=== PATIENT | male | born 1990 | race Two or more races ===

== ENCOUNTER 2021-10-04 05:50 | Emergency (ER) | payer OTHER ==
[2021-10-04 05:56] VITALS: TEMP 98
--- NOTE | 2021-10-04 06:34 | ED ---
General Adult HPI - General Chief complaint: Overdose Stated complaint: Overdose Time Seen by Provider: 10/04/21 06:03 Source: patient, police, EMS, RN notes reviewed Mode of arrival: EMS - History of Present Illness Initial comments: 31-year-old male presents to the emergency room for a chief complaint of overdose. Patient is a poor historian, most history obtained from EMS. Patient presents with EMS and PD. He was dropped off at a local fire station unconscious by his friends. He was given nasal Narcan and be became combative. On arrival he is not following direction or answering questions, having tangential speech and attempting to get out of bed. No history of trauma that they're aware of.Patient has no other complaints at this time including shortness of breath, chest pain, abdominal pain, nausea or vomiting, headache, or visual changes. - Related Data Home Medications Medication Instructions Recorded Confirmed No Known Home Medications 09/23/14 10/04/21 Allergies Allergy/AdvReac Type Severity Reaction Status Date / Time No Known Allergies Allergy Verified 10/04/21 07:16 Review of Systems ROS Statement: Those systems with pertinent positive or pertinent negative responses have been documented in the HPI. ROS Other: All systems not noted in ROS Statement are negative. Past Medical History Past Medical History: No Reported History, Unable to Obtain History of Any Multi-Drug Resistant Organisms: None Reported, Unobtainable Past Surgical History: No Surgical Hx Reported, Unable to Obtain Past Psychological History: No Psychological Hx Reported, Unable to Obtain Smoking Status: Unknown if ever smoked Past Alcohol Use History: Occasional Past Drug Use History: Heroin General Exam General appearance: alert (easily arousable to name but quick to fall back asleep) Head exam: Present: atraumatic Eye exam: Present: normal appearance, PERRL, EOMI. Absent: scleral icterus, conjunctival injection ENT exam: Present: normal exam, mucous membranes moist Neck exam: Present: normal inspection, full ROM. Absent: tenderness, meningismus Respiratory exam: Present: normal lung sounds bilaterally. Absent: respiratory distress, wheezes Cardiovascular Exam: Present: regular rate, normal rhythm, normal heart sounds GI/Abdominal exam: Present: soft, normal bowel sounds. Absent: distended, tenderness Neurological exam: Present: alert (arousable to name, not answering questions.) Course Vital Signs 10/04/21 10/04/21 10/04/21 05:52 06:25 07:49 Temperature 98 F Pulse Rate 106 H 85 91 Respiratory 18 16 14 Rate Blood Pressure 128/80 122/63 99/72 O2 Sat by Pulse 98 98 100 Oximetry 10/04/21 08:34 Temperature Pulse Rate 94 Respiratory 16 Rate Blood Pressure 141/77 O2 Sat by Pulse 100 Oximetry Procedures - Restraint - Face to Face Restraint Occurrence 1 Patient's Immediate Situation: Endangers self safety, Endangers staff safety Patient's Reaction to the Intervention: Uncooperative, Angry, Aggressive, Combative Patient's Medical & Behavioral Condition: Drowsy Need to Continue or Terminate Restraint or Seclusion: Continue Face to Face Eval of Restraint Date: 10/04/21 Face to Face Eval of Restraint Time: 06:03 Medical Decision Making - Medical Decision Making Patient presents with PD and EMS after becoming combative with Narcan. He was initially restrained. He became sleepy and was easily arousable to his name th roughout his stay. Restraints are removed. Laboratory evaluation was obtained which was negative. CT brain pending however patient is leaving AGAINST MEDICAL ADVICE. He is alert and oriented, capable of making medical decisions. He is ambulatory. - Lab Data Result diagrams: 10/04/21 06:12 10/04/21 06:12 Lab Results 10/04/21 10/04/21 Range/Units 06:12 06:12 WBC 12.0 H (3.8-10.6) k/uL RBC 4.76 (4.30-5.90) m/uL Hgb 14.4 (13.0-17.5) gm/dL Hct 43.5 (39.0-53.0) % MCV 91.4 (80.0-100.0) fL MCH 30.1 (25.0-35.0) pg MCHC 33.0 (31.0-37.0) g/dL RDW 12.0 (11.5-15.5) % Plt Count 281 (150-450) k/uL MPV 8.3 Neutrophils % 77 % Lymphocytes % 13 % Monocytes % 8 % Eosinophils % 1 % Basophils % 0 % Neutrophils # 9.2 H (1.3-7.7) k/uL Lymphocytes # 1.5 (1.0-4.8) k/uL Monocytes # 0.9 (0-1.0) k/uL Eosinophils # 0.2 (0-0.7) k/uL Basophils # 0.0 (0-0.2) k/uL Sodium 138 (137-145) mmol/L Potassium 3.5 (3.5-5.1) mmol/L Chloride 103 (98-107) mmol/L Carbon Dioxide 27 (22-30) mmol/L Anion Gap 8 mmol/L BUN 21 H (9-20) mg/dL Creatinine 1.24 (0.66-1.25) mg/dL Est GFR (CKD-EPI)AfAm 88 (>60 ml/min/1.73 sqM) Est GFR (CKD-EPI)NonAf 76 (>60 ml/min/1.73 sqM) Glucose 135 H (74-99) mg/dL Calcium 8.9 (8.4-10.2) mg/dL Total Bilirubin 0.8 (0.2-1.3) mg/dL AST 45 (17-59) U/L ALT 22 (4-49) U/L Alkaline Phosphatase 61 (38-126) U/L Total Protein 7.5 (6.3-8.2) g/dL Albumin 4.5 (3.5-5.0) g/dL Serum Alcohol <10 mg/dL Disposition Clinical Impression: Opioid overdose Disposition: Left Against Medical Advice Condition: Good Instructions (If sedation given, give patient instructions): Adult Overdose (ED) Additional Instructions: Follow up with primary care. Return to the ER for any worsening symptoms. Is patient prescribed a controlled substance at d/c from ED?: No Referrals: Hazel Wade MD [REFERRING] - 1-2 days Time of Disposition: 08:39
[2021-10-04 07:00] LABS: Basophils % (A) 0 %; Eosinophils # (A) 0.2 k/uL (0-0.7); Eosinophils % (A) 1 %; HCT 43.5 % (39.0-53.0); HGB 14.4 gm/dL (13.0-17.5); Lymphocytes # (A) 1.5 k/uL (1.0-4.8); Lymphocytes % (A) 13 %; MCH 30.1 pg (25.0-35.0); MCV 91.4 fL (80.0-100.0); Mean Platelet Volume 8.3; Monocytes # (A) 0.9 k/uL (0-1.0); Monocytes % (A) 8 %; Neutrophils # (A) 9.2 k/uL (1.3-7.7); Neutrophils % (A) 77 %; Platelet Count 281 k/uL (150-450); RBC 4.76 m/uL (4.30-5.90)
[2021-10-04 07:14] LABS: ALT 22 U/L (4-49); AST 45 U/L (17-59); African American GFR (CKD) 88 (>60 ml/min/1.73 sqM); Albumin 4.5 g/dL (3.5-5.0); Alcohol <10 mg/dL; Alkaline Phosphatase 61 U/L (38-126); Anion Gap 8 mmol/L; Blood Urea Nitrogen 21 mg/dL (9-20); Calcium 8.9 mg/dL (8.4-10.2); Carbon Dioxide 27 mmol/L (22-30); Chloride 103 mmol/L (98-107); Glucose 135 mg/dL (74-99); Non-African American GFR(CKD) 76 (>60 ml/min/1.73 sqM); Potassium 3.5 mmol/L (3.5-5.1); Sodium 138 mmol/L (137-145); Total Bilirubin 0.8 mg/dL (0.2-1.3); Total Protein 7.5 g/dL (6.3-8.2)
[2021-10-04 08:35] VITALS: BP 141/77; PULSE 94; RESP 16
--- NOTE | 2021-10-04 08:40 | CT ---
EXAMINATION TYPE: CT brain wo con DATE OF EXAM: 10/04/2021 COMPARISON: None available HISTORY: AMS. SCANNED TWICE DUE TO PATIENT MOVEMENT CT DLP: 2202.4 mGycm Automated exposure control for dose reduction was used. TECHNIQUE: CT scan of the brain is performed without IV contrast administration. FINDINGS: Suboptimal CT scan with motion artifacts in spite of repetition. The posterior fossa and the inferior aspects of the temporal bones are obscured by artifacts. No gross acute intracranial hemorrhage. No gross acute cortical infarct. No midline shift, herniation or ventriculomegaly. Unremarkable sella and CP angles. No gross space-occupying lesion, vasogenic edema or mass effect. No gross orbital abnormality. Mucosal thickening of the right maxillary sinus. Clear mastoid air cells. No gross aggressive bone lesion. IMPRESSION: With the limitation of the suboptimal artifactual images, no major acute intracranial bleeding, gross space-occupying lesion or significant mass effect. Subtle abnormality in the posterior fossa or temp oral lobes cannot be excluded by this CT scan.
== END 2021-10-04 08:40 | disposition left against medical advice (07) ==
LOC: EC 05:50
DX: T40.601A Poisoning by unspecified narcotics, accidental (unintentional), initial encounter (principal); Z53.29 Procedure and treatment not carried out because of patient's decision for other reasons
CPT/HCPCS: 36415; 80053; 85025; 70450; 99285; G0480; 80320

== ENCOUNTER 2022-09-12 17:06 | Inpatient (IN) | payer OTHER ==
[2022-09-12] MEDS ORDERED: LORazepam 2 MG/ML INJ IM STA (17:26)
--- NOTE | 2022-09-12 17:29 | ED ---
General Adult HPI - General Chief complaint: Overdose Stated complaint: mental health Time Seen by Provider: 09/12/22 17:07 Source: patient, EMS Mode of arrival: EMS Limitations: no limitations - History of Present Illness Initial comments: Dictation was produced using [employer] dictation software. please excuse any grammatical, word or spelling errors. Chief Complaint: 32-year-old male presents emergency department for psychiatric evaluation History of Present Illness: Patient 32-year-old male he has history of illicit drug abuse. Patient states he snorted a couple lines of methamphetamines on top of smoking WAX and taking suboxone. Patient was brought in by EMS. Apparently bystanders noted the patient was lying on the road. Police was called ultimately led to EMS being called and patient be brought to the ER. Patient byrd s any suicidal or homicidal ideation. Patient allegedly relapsed on use of drugs. The ROS documented in this emergency department record has been reviewed and confirmed by me. Those systems with pertinent positive or negative responses have been documented in the HPI. All other systems are other negative and/or noncontributory. PHYSICAL EXAM: General Impression: Alert and oriented x3, not in acute distress, sympathomimetic toxic HEENT: Normocephalic atraumatic, extra-ocular movements intact, pupils equal and reactive to light bilaterally, mucous membranes moist. Cardiovascular: Tachycardic Chest: Able to complete full sentences, no retractions, no tachypnea Abdomen: abdomen soft, non-tender, non-distended, no organomegaly Musculoskeletal: Pulses present and equal in all extremities, no peripheral edema Motor: no focal deficits noted Neurological: CN II-XII grossly intact, no focal motor or sensory deficits noted Skin: Intact with no visualized rashes Psych: Normal affect and mood ED course: 32-year-old male presents emergency department for significant tobacco medical toxicity. Vital signs upon arrival shows heart rate 122, so vital signs within acceptable limits. Nursing notes and chart review was performed Was pt. sent in by a medical professional or institution ([facility], [facility], urgent care, hospital, or senior living...) When possible be specific @ -No Did you speak to anyone other than the patient for history (EMS, parent, family, police, friend...)? What history was obtained from this source @ -EMS Did you review nursing and triage notes (agree or disagree)? Why? @ -I reviewed and agree with nursing and triage notes Were old charts reviewed (outside hosp., previous admission, EMS record, old EKG, old radiological studies, urgent care reports/EKG's, senior living records)? Report findings @ -No old charts were reviewed Differential Diagnosis (chest pain, altered mental status, abdominal pain women, abdominal pain men, vaginal bleeding, musculoskeletal, weakness, fever, dyspnea, syncope, headache, dizziness, GI bleed, back pain, seizure, CVA, palpatations, mental health)? @ -Differential Altered Mental Status: Hypoglycemia, DKA, hypercapnia, ETOH, overdose, CO poisoning, trauma, myxedema coma, HTN encephalopathy, infection, encephalitis, psychosis, intercranial hemorrhage, hepatic encephalopathy, meningitis, CVA, this is not meant to be an all-inclusive list EKG interpreted by me (3pts min.). @ -None done X-rays interpreted by me (1pt min.). @ -None done CT interpreted by me (1pt min.). @ -None done U/S interpreted by me (1pt. min.). @ -None done What testing was considered but not performed or refused? (CT, X-rays, U/S, labs)? Why? @ -See above What meds were considered but not given or refused? Why? @ -See above Did you discuss the management of the patient with other professionals (professionals i.e. , PA, [facility], lab, RT, psych nurse, social work msw, deputy director, teacher, detention officer, classification case manager)? Give summary @ -Case discussed with Dr. Rosen for admission Was smoking cessation discussed for >3mins.? @ -No Was critical care preformed (if so, how long)? @ -Yes, 33 minutes Were there social determinants of health that impacted care today? How? (Homelessness, low income, unemployed, alcoholism, drug addiction, transportation, low edu. Level, literacy, decrease access to med. care, half-way, rehab)? @ -No Was there de-escalation of care discussed even if they declined (Discuss DNR or withdrawal of care, Hospice)? DNR status @ -No What co-morbidities impacted this encounter? (DM, HTN, Smoking, COPD, CAD, Cancer, CVA, ARF, Chemo, Hep., AIDS, mental health diagnosis, sleep apnea, morbid obesity)? @ -None Was patient admitted / discharged? Hospital course, mention meds given and route, prescriptions, significant lab abnormalities, going to OR and other pertinent info. @ -32-year-old male presents emergency department for mental health evaluation. Patient showing signs of sympathomimetic toxicity. Patient admits to using methamphetamines today. Patient agitated. He is given Ativan with sedation. Laboratory evaluation obtained. Stress leukocytosis 21.2. Metabolic panel shows acidosis and hypoglycemia. Elevated renal markers. CK of 43,000 suggesting rhabdomyolysis. Jaimes catheter was placed for accurate I&O monitoring. Patient will be admitted for further care. Case discussed with Dr. Rosen who is willing to accept patients care. Patient given dextrose. Glucose levels will be monitored. Undiagnosed new problem with uncertain prognosis? @ -No Drug Therapy requiring intensive monitoring for toxicity (Heparin, Nitro, Insulin, Cardizem)? @ -Yes Were any procedures done? @ -No Diagnosis/symptom? Acute, or Chronic, or Acute on Chronic? Uncomplicated (without systemic symptoms) or Complicated (systemic symptoms)? @ -1. Acute sympathomimetic toxicity,, located, 2. Rhabdomyolysis, 3. Hypoglycemia Side effects of treatment? @ -No Exacerbation, Progression, or Severe Exacerbation? @ -No Poses a threat to life or bodily function? How? (Chest pain, [place], [place], pneumonia, PE, COPD, DKA, ARF, appy, cholecystitis, CVA, Diverticulitis, Homicidal, Suicidal, threat to staff... and all critical care pts) @ -Yes - Related Data Home Medications Medication Instructions Recorded Confirmed No Known Home Medications 09/23/14 09/12/22 Allergies Allergy/AdvReac Type Severity Reaction Status Date / Time No Known Allergies Allergy Verified 09/12/22 17:43 Review of Systems ROS Statement: Those systems with pertinent positive or pertinent negative responses have been documented in the HPI. ROS Other: All systems not noted in ROS Statement are negative. Past Medical History Past Medical History: No Reported History, Unable to Obtain History of Any Multi-Drug Resistant Organisms: None Reported, Unobtainable Past Surgical History: No Surgical Hx Reported, Unable to Obtain Past Psychological History: No Psychological Hx Reported, Unable to Obtain Smoking Status: Unknown if ever smoked Past Alcohol Use History: Occasional Past Drug Use History: Heroin General Exam Limitations: no limitations Course Vital Signs 09/12/22 09/12/22 09/12/22 17:12 20:00 20:23 Temperature 98.1 F Pulse Rate 122 H 108 H Respiratory 18 16 Rate Blood Pressure 140/93 126/63 O2 Sat by Pulse 97 84 L 93 L Oximetry 09/12/22 09/12/22 20:26 20:36 Temperature Pulse Rate Respiratory Rate Blood Pressure O2 Sat by Pulse 74 L 96 Oximetry Medical Decision Making - Lab Data Result diagrams: 09/12/22 18:54 09/12/22 18:54 Lab Results 09/12/22 09/12/22 09/12/22 Range/Units 18:54 18:54 20:07 WBC 21.2 H (3.8-10.6) k/uL RBC 4.54 (4.30-5.90) m/uL Hgb 13.8 (13.0-17.5) gm/dL Hct 40.7 (39.0-53.0) % MCV 89.6 (80.0-100.0) fL MCH 30.5 (25.0-35.0) pg MCHC 34.0 (31.0-37.0) g/dL RDW 12.2 (11.5-15.5) % Plt Count 232 (150-450) k/uL MPV 9.4 Neutrophils % 89 % Lymphocytes % 4 % Monocytes % 5 % Eosinophils % 1 % Basophils % 0 % Neutrophils # 18.9 H (1.3-7.7) k/uL Lymphocytes # 0.8 L (1.0-4.8) k/uL Monocytes # 1.1 H (0-1.0) k/uL Eosinophils # 0.1 (0-0.7) k/uL Basophils # 0.0 (0-0.2) k/uL Sodium 137 (137-145) mmol/L Potassium 4.3 (3.5-5.1) mmol/L Chloride 94 L (98-107) mmol/L Carbon Dioxide 21 L (22-30) mmol/L Anion Gap 22 mmol/L BUN 38 H (9-20) mg/dL Creatinine 1.47 H (0.66-1.25) mg/dL Est GFR (CKD-EPI)AfAm 71 (>60 ml/min/1.73 sqM) Est GFR (CKD-EPI)NonAf 62 (>60 ml/min/1.73 sqM) Glucose 53 L (74-99) mg/dL Calcium 8.9 (8.4-10.2) mg/dL Creatine Kinase 26905 H* (55-170) U/L Urine Opiates Screen Not Detected (NotDetected) Ur Oxycodone Screen Not Detected (NotDetected) Urine Methadone Screen Not Detected (NotDetected) Ur Propoxyphene Screen Not Detected (NotDetected) Ur Barbiturates Screen Not Detected (NotDetected) U Tricyclic Antidepress Not Detected (NotDetected) Ur Phencyclidine Scrn Not Detected (NotDetected) Ur Amphetamines Screen Detected H (NotDetected) U Methamphetamines Scrn Detected H (NotDetected) U Benzodiazepines Scrn Not Detected (NotDetected) Urine Cocaine Screen Not Detected (NotDetected) U Marijuana (THC) Screen Detected H (NotDetected) Disposition Clinical Impression: Adverse effect of sympathomimetics, Rhabdomyolysis Disposition: ADMITTED IP TO THIS [facility] Condition: Serious Referrals: None,Stated [Primary Care Provider] - 1-2 days Decision Time: 21:10
[2022-09-12] MEDS ORDERED: DIPH,PERTUS(ACELL)TETVAC-LF 0.5 ML VIAL IM ONE (18:58)
[2022-09-12 19:03] LABS: Basophils % (A) 0 %; Eosinophils # (A) 0.1 k/uL (0-0.7); Eosinophils % (A) 1 %; HCT 40.7 % (39.0-53.0); HGB 13.8 gm/dL (13.0-17.5); Lymphocytes # (A) 0.8 k/uL (1.0-4.8); Lymphocytes % (A) 4 %; MCH 30.5 pg (25.0-35.0); MCV 89.6 fL (80.0-100.0); Mean Platelet Volume 9.4; Monocytes # (A) 1.1 k/uL (0-1.0); Monocytes % (A) 5 %; Neutrophils # (A) 18.9 k/uL (1.3-7.7); Neutrophils % (A) 89 %; Platelet Count 232 k/uL (150-450); RBC 4.54 m/uL (4.30-5.90); RDW 12.2 % (11.5-15.5); WBC 21.2 k/uL (3.8-10.6)
[2022-09-12 19:11] LABS: Calcium 8.9 mg/dL (8.4-10.2); Potassium 4.3 mmol/L (3.5-5.1)
[2022-09-12] MEDS ORDERED: DEXTROSE 50% SYRINGE 50 ML IVP STA (19:55)
[2022-09-12] MEDS ORDERED: LORazepam 2 MG/ML INJ IV STA ×2 (20:21→22:31)
[2022-09-12 20:34] LABS: Amphetamine Screen,Urine Detected (NotDetected); Barbiturate Screen,Urine Not Detected (NotDetected); Benzodiazepines Screen,Urine Not Detected (NotDetected); Cocaine Screen,Urine Not Detected (NotDetected); Methadone Screen, Urine Not Detected (NotDetected); Opiate Screen,Urine Not Detected (NotDetected); Oxycodone Screen, Urine Not Detected (NotDetected); Phencyclidine Screen,Urine Not Detected (NotDetected); Tricyclic Antidepressant,Urine Not Detected (NotDetected); Urn Cannabinoid Scrn Detected (NotDetected)
[2022-09-12] MEDS ORDERED: NALOXONE 0.4 MG/ML 1 ML VIAL IV PRN ×2 (21:05→23:35)
[2022-09-12] MEDS: SODIUM CHLORIDE 0.9% 1,000 ML IV SCH (21:12)
[2022-09-12] MEDS ORDERED: SODIUM CHLORIDE 0.9% 2,000 ML IV STA (21:13)
--- NOTE | 2022-09-12 21:25 | XR ---
EXAMINATION TYPE: XR chest 1V portable DATE OF EXAM: 09/12/2022 COMPARISON: NONE HISTORY: Hypoxemia TECHNIQUE: Single view FINDINGS: Heart is normal. Lungs are clear of infiltrate. No heart failure. There are no hilar masses . There are chest leads. Bony thorax is intact IMPRESSION: No active cardiopulmonary disease. Normal heart
[2022-09-12 21:48] LABS: Glucose,Whole Blood 73 mg/dL (70-110)
[2022-09-12] MEDS ORDERED: DEXTROSE 10% IN WATER 1,000 ML with SODIUM CHLORIDE 2.5MEQ/ML VIAL 153.8 MEQ IV SCH (22:00)
[2022-09-12] MEDS ORDERED: diphenhydrAMINE 50 MG/ML 1 ML VIAL IVP STA (22:32)
[2022-09-12 22:45] LABS: Glucose,Whole Blood 72 mg/dL (70-110)
[2022-09-12 23:06] LABS: Glucose,Whole Blood 87 mg/dL (70-110)
[2022-09-12] MEDS: DEXMEDETOMIDINE/0.9% NACL(PMX) 400 MCG in EMPTY BAG 1 BAG IV SCH (23:08)
[2022-09-12 23:18] LABS: ABG Base Excess -7.2 mmol/L; ABG HCO3 20 mmol/L (21-25); ABG Oxygen Saturation 99.7 % (94-97); ABG PCO2 47 mmHg (35-45); ABG PH 7.24 (7.35-7.45); ABG PO2 246 mmHg (83-108); ABG TCO2 22 mmol/L (19-24); Allen Test Performed? Yes
--- NOTE | 2022-09-12 23:44 | P.HPIM ---
History of Present Illness H&P Date: 09/12/22 The patient is a 32-year-old male with a PMH of polysubstance abuse was brought to the emergency room after he was found laying down by the road. The patient was very agitated and combative at the time of interview, thereby no meaningful history could be obtained. The patient had reportedly admitted to using multiple substances throughout the day today including Suboxone. Urine toxicology was positive for methamphetamines, amphetamines, and marijuana. Laboratory evaluation was also remarkable for creatine kinase of 43,040. Patient received Ativan IV push 2 mg 2 in the emergency room. Review of systems: Unable to obtain due to mental status Physical examination: Vital signs reviewed General: Disheveled, no distress, appears at stated age, overweight Derm: Superficial blisters on feet, warm Head: atraumatic, normocephalic, symmetric Eyes: EOMI, no lid lag, anicteric sclera, pupils equal round reactive to light ENT: Nose and ears atraumatic Neck: No cervical lymphadenopathy, trachea midline, supple Mouth: no lip lesion, mucus membranes moist Cardiovascular: S1S2 reg, no murmur, positive dorsalis pedis pulse bilateral, no edema Lungs: CTA bilateral, no rhonchi, no rales, no accessory muscle use Abdominal: soft, no guarding Ext: No gross muscle atrophy, no contractures Neuro: Patient extremely combative requiring multiple personnel to hold him down , no gross focal neuro deficits Psych: Somnolent, opens eye briefly with stimuli, not speaking in full sentences Assessment: Rhabdomyolysis Agitation, likely due to substance abuse Polysubstance use Kidney injury Leukocytosis, likely secondary to acute stress Imaging: Chest x-ray in the emergency room was unremarkable Data Review: Vital signs upon presentation at the emergency room were BP 120/93, pulse 122, respiratory rate 18, SpO2 97% on room air, and temperature 98.1F. Laboratory evaluation was remarkable for WBC count 21.2, creatinine 1.47, BUN 38, creatine kinase 43,040, urine toxicology positive for amphetamines, methamphetamines, and marijuana. Plan: Patient transferred to medical ICU for Precedex infusion Continue with normal saline 200 mL per hour Comprehensive Ophthalmologist consulted Monitor CK levels and BMP daily DVT prophylaxis: Lovenox The patient is admitted with an anticipated greater than 2 midnight stay for evaluation of rhabdomyolysis CODE STATUS: Full Code Anticipated discharge place: Unknown Review of Systems ROS unobtainable: due to mental status Past Medical History Past Medical History: No Reported History, Unable to Obtain History of Any Multi-Drug Resistant Organisms: None Reported, Unobtainable Past Surgical History: No Surgical Hx Reported, Unable to Obtain Past Psychological History: No Psychological Hx Reported, Unable to Obtain Smoking Status: Unknown if ever smoked Past Alcohol Use History: Occasional Past Drug Use History: Heroin - Past Family History Mother Family Medical History: Unable to Obtain (due to mental status) Medications and Allergies Home Medications Medication Instructions Recorded Confirmed Type No Known Home Medications 09/23/14 09/12/22 History Allergies Allergy/AdvReac Type Severity Reaction Status Date / Time No Known Allergies Allergy Verified 09/12/22 17:43 Physical Exam Vitals: Vital Signs Temp Pulse Resp BP Pulse Ox 09/12/22 21:00 106 H 16 114/73 98 09/12/22 20:36 96 09/12/22 20:26 74 L 09/12/22 20:23 93 L 09/12/22 20:00 108 H 16 126/63 84 L 09/12/22 17:12 98.1 F 122 H 18 140/93 97 Intake and Output 09/12/22 09/12/22 09/13/22 14:59 22:59 06:59 Other: Weight 86.183 kg Results CBC & Chem 7: 09/12/22 18:54 09/12/22 18:54 Labs: Abnormal Lab Results - Last 24 Hours (Table) 09/12/22 09/12/22 09/12/22 Range/Units 18:54 18:54 20:07 WBC 21.2 H (3.8-10.6) k/uL Neutrophils # 18.9 H (1.3-7.7) k/uL Lymphocytes # 0.8 L (1.0-4.8) k/uL Monocytes # 1.1 H (0-1.0) k/uL Chloride 94 L (98-107) mmol/L Carbon Dioxide 21 L (22-30) mmol/L BUN 38 H (9-20) mg/dL Creatinine 1.47 H (0.66-1.25) mg/dL Glucose 53 L (74-99) mg/dL Creatine Kinase 89377 H* (55-170) U/L Ur Amphetamines Screen Detected H (NotDetected) U Methamphetamines Scrn Detected H (NotDetected) U Marijuana (THC) Screen Detected H (NotDetected)
[2022-09-13] MEDS: SODIUM CHLORIDE 0.9% 1,000 ML IV SCH ×2 (02:15→07:00)
[2022-09-13] MEDS: LORazepam 2 MG/ML INJ IV PRN ×6 (03:45→23:30)
[2022-09-13] MEDS: DEXMEDETOMIDINE/0.9% NACL(PMX) 400 MCG in EMPTY BAG 1 BAG IV SCH ×2 (05:36→17:14)
[2022-09-13 05:53] LABS: Basophils % (A) 0 %; Eosinophils % (A) 0 %; HCT 31.4 % (39.0-53.0); Lymphocytes # (A) 1.4 k/uL (1.0-4.8); Lymphocytes % (A) 17 %; MCH 30.5 pg (25.0-35.0); MCHC 32.1 g/dL (31.0-37.0); Mean Platelet Volume 9.5; Monocytes # (A) 0.6 k/uL (0-1.0); Monocytes % (A) 7 %; Neutrophils # (A) 5.9 k/uL (1.3-7.7); Neutrophils % (A) 73 %; Platelet Count 143 k/uL (150-450); RDW 12.9 % (11.5-15.5); WBC 8.1 k/uL (3.8-10.6)
[2022-09-13 05:56] LABS: HGB 10.1 gm/dL (13.0-17.5); MCV 95.1 fL (80.0-100.0)
[2022-09-13 06:04] LABS: African American GFR (CKD) >90 (>60 ml/min/1.73 sqM); Anion Gap 7 mmol/L; Blood Urea Nitrogen 21 mg/dL (9-20); Carbon Dioxide 17 mmol/L (22-30); Chloride 116 mmol/L (98-107); Magnesium 1.8 mg/dL (1.6-2.3); Non-African American GFR(CKD) >90 (>60 ml/min/1.73 sqM); Potassium 3.5 mmol/L (3.5-5.1); Sodium 140 mmol/L (137-145)
[2022-09-13 06:16] LABS: Calcium 5.2 mg/dL (8.4-10.2); Glucose 673 mg/dL (74-99)
[2022-09-13] MEDS: CALCIUM GLUCONATE IN NACL 2 GM in SALINE 1 100ML.BAG IVPB ONE ×2 (06:51→07:04)
[2022-09-13] MEDS ORDERED: INSULIN ASPART (NovoLOG) 100 UNIT/ML VIAL SQ ONE (07:00)
--- NOTE | 2022-09-13 07:18 | P.CNPUL ---
History of Present Illness Chief complaint: Altered mental status History of present illness: 32-year-old male patient, presented to us with acute methamphetamine toxicity. Patient was found laying down by Dr. Quevedo. He was very agitated and combative and no information could be obtained from him. The phone number this in the chart was used to contact his family. The number turnout to be strong. The patient has history of polysubstance abuse. Urine drug screen was positive for amphetamine, methamphetamine and marijuana. His condition was uncontrollable. The patient received Ativan in the emergency total of 6 mg and he was also given Benadryl. Due to his extreme agitation, got transferred to the intensive care unit. Currently is on Precedex drip which is running at 0.4 mcg/kg/h. His more rest at this point in time. He is hemodynamically self and his blood pressure being 92/59. Cardiac rhythm is sinus at the rate of 78. Pulse ox is 98% on oxygen at 4 L. He was having a lower blood sugar. He was given D10 and the most recent blood sugar was 73. The D10 infusion was discontinued. His blood sugar was as low as 53. He does have a non-anion gap metabolic acidosis. Serum bicarbs at 17 with a gap of 7 and the sodium is at 140. BUN is at 20 oh with a creatinine of 0.6. To our knowledge, the patient is not diabetic. Nevertheless comes of 8.0 with a hemoglobin of 10.1 and a platelet count of 143. His chest x-ray revealed no acute abnormalities. CAT scan of the brain is not done. No other information could be obtained from the patient. The patient does have a Jaimes catheter. Urine output is in order of 40 mL an hour. CPKs 43,000. Review of Systems ROS unobtainable: due to mental status All systems: negative Constitutional: Denies chills, Denies fever Eyes: denies blurred vision, denies pain Ears, nose, mouth and throat: Denies headache, Denies sore throat Cardiovascular: Denies chest pain, Denies shortness of breath Respiratory: Denies cough Gastrointestinal: Denies abdominal pain, Denies diarrhea, Denies nausea, Denies vomiting Musculoskeletal: Denies myalgias Integumentary: Denies pruritus, Denies rash Neurological: Denies numbness, Denies weakness Psychiatric: Denies anxiety, Denies depression Endocrine: Denies fatigue, Denies weight change Past Medical History Past Medical History: No Reported History, Unable to Obtain History of Any Multi-Drug Resistant Organisms: None Reported, Unobtainable Past Surgical History: No Surgical Hx Reported, Unable to Obtain Past Anesthesia/Blood Transfusion Reactions: No Reported Reaction Past Psychological History: No Psychological Hx Reported, Unable to Obtain Smoking Status: Unknown if ever smoked Past Alcohol Use History: Occasional Past Drug Use History: Heroin - Past Family History Mother Family Medical History: Unable to Obtain (due to mental status) Medications and Allergies Home Medications Medication Instructions Recorded Confirmed Type No Known Home Medications 09/23/14 09/12/22 History Allergies Allergy/AdvReac Type Severity Reaction Status Date / Time No Known Allergies Allergy Verified 09/12/22 17:43 Physical Exam Vitals: Vital Signs Temp Pulse Pulse Resp BP BP Pulse Ox 09/13/22 07:00 72 14 104/57 97 09/13/22 06:45 75 18 102/52 97 09/13/22 06:30 76 13 101/55 98 09/13/22 06:15 75 14 99/70 99 09/13/22 06:00 75 18 105/65 98 09/13/22 05:45 76 20 96/52 98 09/13/22 05:30 77 18 96/43 97 09/13/22 05:15 77 16 102/65 97 09/13/22 05:00 79 22 108/56 96 09/13/22 04:45 81 21 84/65 98 09/13/22 04:32 98 09/13/22 04:30 80 21 100/65 98 09/13/22 04:15 80 20 107/55 98 09/13/22 04:00 98.2 F 79 19 94/45 98 09/13/22 03:45 89 28 H 99/42 97 09/13/22 03:31 96 14 99/42 09/13/22 03:30 80 13 91/51 98 09/13/22 03:15 79 15 91/58 98 09/13/22 03:00 78 15 106/57 98 09/13/22 02:45 89 18 97/57 96 09/13/22 02:30 78 13 97/49 98 09/13/22 02:15 79 15 94/48 98 09/13/22 02:00 79 15 91/52 98 09/13/22 01:45 80 14 92/48 98 09/13/22 01:30 80 11 L 89/51 97 09/13/22 01:27 81 14 89/51 98 09/12/22 22:45 112 H 28 H 127/66 94 L 09/12/22 21:00 106 H 16 114/73 98 09/12/22 20:36 96 09/12/22 20:26 74 L 09/12/22 20:23 93 L 09/12/22 20:00 108 H 16 126/63 84 L 09/12/22 17:12 98.1 F 122 H 18 140/93 97 Intake and Output 09/12/22 09/13/22 09/13/22 22:59 06:59 14:59 Intake Total 2300.221 300 Output Total 460 40 Balance 1840.221 260 Intake: IV 2240 300 Calcium Gluconate in NaCl 100 2 gm In Saline 1 100ml. bag @ 100 mls/hr IVPB ONCE ONE Rx#:[id number] Dextrose 10% in Water 1, 840 000 ml @ 120 mls/hr IV . Q8H51M [facility] with Sodium Chloride 2.5MEQ/ml Vial 153.8 meq Rx#:[id number] Sodium Chloride 0.9% 1, 1400 200 000 ml @ 200 mls/hr IV . Q5H [facility] Rx#:[id number] Intake, IV Titration 60.221 Amount Dexmedetomidine/0.9% NaCl 60.221 (Pmx) 400 mcg In Empty Bag 1 bag @ 0.2 MCG/KG/HR 4.309 mls/hr IV .[id number] [facility] Rx#:[id number] Output: Urine 460 40 Other: Voiding Method Indwelling Catheter Weight 86.183 kg General: Disheveled, no distress, appears at stated age, overweight the patient is currently on 4 L of oxygen by nasal cannula, calm and comfortable and the patient is on Precedex. Derm: Superficial blisters on feet, warm Head: atraumatic, normocephalic, symmetric Eyes: EOMI, no lid lag, anicteric sclera, pupils equal round reactive to light ENT: Nose and ears atraumatic Neck: No cervical lymphadenopathy, trachea midline, supple Mouth: no lip lesion, mucus membranes moist Cardiovascular: S1S2 reg, no murmur, positive dorsalis pedis pulse bilateral, no edema Lungs: CTA bilateral, no rhonchi, no rales, no accessory muscle use Abdominal: soft, no guarding Ext: No gross muscle atrophy, no contractures Neuro: Patient extremely combative requiring multiple personnel to hold him down, no gross focal neuro deficits Psych: Somnolent, opens eye briefly with stimuli, not speaking in full sentences - Constitutional General appearance: no acute distress - EENT Eyes: EOMI - Neck Neck: no lymphadenopathy - Gastrointestinal General gastrointestinal: no organomegaly, soft, no tenderness Results - Laboratory Findings CBC and BMP: 09/13/22 05:30 09/13/22 05:30 ABG WBC 8.1 k/uL (3.8-10.6) 09/13/22 05:30 RBC 3.30 m/uL (4.30-5.90) L 09/13/22 05:30 Hgb 10.1 gm/dL (13.0-17.5) L D 09/13/22 05:30 Hct 31.4 % (39.0-53.0) L 09/13/22 05:30 MCV 95.1 fL (80.0-100.0) D 09/13/22 05:30 MCH 30.5 pg (25.0-35.0) 09/13/22 05:30 MCHC 32.1 g/dL (31.0-37.0) 09/13/22 05:30 RDW 12.9 % (11.5-15.5) 09/13/22 05:30 Plt Count 143 k/uL (150-450) L 09/13/22 05:30 MPV 9.5 09/13/22 05:30 Neutrophils % 73 % 09/13/22 05:30 Lymphocytes % 17 % 09/13/22 05:30 Monocytes % 7 % 09/13/22 05:30 Eosinophils % 0 % 09/13/22 05:30 Basophils % 0 % 09/13/22 05:30 Neutrophils # 5.9 k/uL (1.3-7.7) 09/13/22 05:30 Lymphocytes # 1.4 k/uL (1.0-4.8) 09/13/22 05:30 Monocytes # 0.6 k/uL (0-1.0) 09/13/22 05:30 Eosinophils # 0.0 k/uL (0-0.7) 09/13/22 05:30 Basophils # 0.0 k/uL (0-0.2) 09/13/22 05:30 Sample Site Left Brachial 09/12/22 23:15 ABG pH 7.24 (7.35-7.45) L 09/12/22 23:15 ABG pCO2 47 mmHg (35-45) H 09/12/22 23:15 ABG pO2 246 mmHg (83-108) H 09/12/22 23:15 ABG HCO3 20 mmol/L (21-25) L 09/12/22 23:15 ABG Total CO2 22 mmol/L (19-24) 09/12/22 23:15 ABG O2 Saturation 99.7 % (94-97) H 09/12/22 23:15 ABG Base Excess -7.2 mmol/L 09/12/22 23:15 Avtar Test Yes 09/12/22 23:15 FiO2 100 % 09/12/22 23:15 Sodium 140 mmol/L (137-145) 09/13/22 05:30 Potassium 3.5 mmol/L (3.5-5.1) 09/13/22 05:30 Chloride 116 mmol/L (98-107) H 09/13/22 05:30 Carbon Dioxide 17 mmol/L (22-30) L 09/13/22 05:30 Anion Gap 7 mmol/L 09/13/22 05:30 BUN 21 mg/dL (9-20) H 09/13/22 05:30 Creatinine 0.67 mg/dL (0.66-1.25) 09/13/22 05:30 Est GFR (CKD-EPI)AfAm >90 (>60 ml/min/1.73 sqM) 09/13/22 05:30 Est GFR (CKD-EPI)NonAf >90 (>60 ml/min/1.73 sqM) 09/13/22 05:30 Glucose 673 mg/dL (74-99) H* 09/13/22 05:30 POC Glucose (mg/dL) 87 mg/dL (70-110) 09/12/22 23:04 POC Glu [employer] Sales[employer] ID [email or web address] Reva 09/12/22 23:04 Calcium 5.2 mg/dL (8.4-10.2) L* 09/13/22 05:30 Magnesium 1.8 mg/dL (1.6-2.3) 09/13/22 05:30 Creatine Kinase 52579 U/L (55-170) H* 09/12/22 18:54 Urine Opiates Screen Not Detected (NotDetected) 09/12/22 20:07 Ur Oxycodone Screen Not Detected (NotDetected) 09/12/22 20:07 Urine Methadone Screen Not Detected (NotDetected) 09/12/22 20:07 Ur Propoxyphene Screen Not Detected (NotDetected) 09/12/22 20:07 Ur Barbiturates Screen Not Detected (NotDetected) 09/12/22 20:07 U Tricyclic Antidepress Not Detected (NotDetected) 09/12/22 20:07 Ur Phencyclidine Scrn Not Detected (NotDetected) 09/12/22 20:07 Ur Amphetamines Screen Detected (NotDetected) H 09/12/22 20:07 U Methamphetamines Scrn Detected (NotDetected) H 09/12/22 20:07 U Benzodiazepines Scrn Not Detected (NotDetected) 09/12/22 20:07 Urine Cocaine Screen Not Detected (NotDetected) 09/12/22 20:07 U Marijuana (THC) Screen Detected (NotDetected) H 09/12/22 20:07 Abnormal lab findings: Abnormal Labs 09/12/22 09/12/22 09/12/22 18:54 18:54 20:07 WBC 21.2 H RBC Hgb Hct Plt Count Neutrophils # 18.9 H Lymphocytes # 0.8 L Monocytes # 1.1 H ABG pH ABG pCO2 ABG pO2 ABG HCO3 ABG O2 Saturation Chloride 94 L Carbon Dioxide 21 L BUN 38 H Creatinine 1.47 H Glucose 53 L Calcium Creatine Kinase 45599 H* Ur Amphetamines Screen Detected H U Methamphetamines Scrn Detected H U Marijuana (THC) Screen Detected H 09/12/22 09/13/22 09/13/22 23:15 05:30 05:30 WBC RBC 3.30 L Hgb 10.1 L D Hct 31.4 L Plt Count 143 L Neutrophils # Lymphocytes # Monocytes # ABG pH 7.24 L ABG pCO2 47 H ABG pO2 246 H ABG HCO3 20 L ABG O2 Saturation 99.7 H Chloride 116 H Carbon Dioxide 17 L BUN 21 H Creatinine Glucose 673 H* Calcium 5.2 L* Creatine Kinase Ur Amphetamines Screen U Methamphetamines Scrn U Marijuana (THC) Screen - Diagnostic Findings Chest x-ray: image reviewed Assessment and Plan Plan: Acute amphetamine toxicity Acute mental status change secondary to above Acute agitation secondary to above, currently on Precedex infusion running at 0.4 microvascular kilogram per hour Acute rhabdomyolysis Hypoglycemia treated with D10. Blood sugars are quite elevated at this point in time Non-anion gap metabolic acidosis History of polysubstance abuse Plan If the patient oxygen 4 L/m nasal cannula his current pulse ox is 96%. Chest x- ray is clear Continue Precedex infusion and titrate the dose for agitation Continue IV fluids with normal saline at rate of 150 mL an hour Monitor CPK every 8 hours Monitor renal function and evaluate for development of any acute injury CAT scan of the brain may be needed later stage once his mentation stabilizes and his agitation improves Monitor the blood sugar. I acute hyperglycemia that occurred with D10 infusion should improve. Based on his blood sugar control, will treat this patient accordingly. The patient IV Protonix 40 mg every 24 hours Lovenox 40 mg subcu for DVT prophylaxis We'll try to obtain more information regarding history. The patient will be kept in the ICU for now. Appreciate efforts done by the nursing staff to control this patient's agitation. Continue to follow
[2022-09-13] MEDS ORDERED: Potassium Replacement Protocol 1 EACH MISC MISCELLANE PRN (08:01)
[2022-09-13] MEDS ORDERED: Magnesium Replacement Protocol 1 EACH MISC MISCELLANE PRN (08:02)
[2022-09-13 08:21] LABS: Glucose,Whole Blood 62 mg/dL (70-110)
[2022-09-13] MEDS ORDERED: MAGNESIUM SULFATE-D5W PMX 1 GM in DEXTROSE/WATER 1 100ML.BAG IVPB ONE (08:30)
[2022-09-13] MEDS: POTASSIUM CHLORIDE 10 MEQ in WATER FOR INJECTION 1 100ML.BAG IVPB SCH ×4 (08:58→12:21)
[2022-09-13] MEDS: ENOXAPARIN 40 MG/0.4 ML SYRINGE SQ SCH (08:58)
[2022-09-13] MEDS: DEXTROSE 5%-0.9% NACL 1,000 ML IV SCH ×3 (09:00→22:06)
[2022-09-13 09:29] LABS: Glucose,Whole Blood 88 mg/dL (70-110)
--- NOTE | 2022-09-13 09:40 | P.NPCON ---
History of Present Illness - Reason for Consult Consult date: 09/13/22 acute renal failure - Chief Complaint Rhabdomyolysis - History of Present Illness This is a 32-year-old male seen in consultation because of rhabdomyolysis. He was found unconscious and urine drug screen showed amphetamines and marijuana. At the time of his admission he was somewhat obtunded. [place] [address] [place] [address]. His creatinine was 1.47 but has improved to 0.67 this morning, his urine output is though recorded at 460 mL since his admission yesterday. Currently on exam his somewhat obtunded Past Medical History Past Medical History: No Reported History, Unable to Obtain History of Any Multi-Drug Resistant Organisms: None Reported, Unobtainable Past Surgical History: No Surgical Hx Reported, Unable to Obtain Past Anesthesia/Blood Transfusion Reactions: No Reported Reaction Past Psychological History: No Psychological Hx Reported, Unable to Obtain Smoking Status: Unknown if ever smoked Past Alcohol Use History: Occasional Past Drug Use History: Heroin - Past Family History Mother Family Medical History: Unable to Obtain (due to mental status) Medications and Allergies Home Medications Medication Instructions Recorded Confirmed Type No Known Home Medications 09/23/14 09/12/22 History Allergies Allergy/AdvReac Type Severity Reaction Status Date / Time No Known Allergies Allergy Verified 09/12/22 17:43 Physical Exam Vitals: Vital Signs Temp Pulse Pulse Resp BP BP Pulse Ox 09/13/22 07:00 72 14 104/57 97 09/13/22 06:45 75 18 102/52 97 09/13/22 06:30 76 13 101/55 98 09/13/22 06:15 75 14 99/70 99 09/13/22 06:00 75 18 105/65 98 09/13/22 05:45 76 20 96/52 98 09/13/22 05:30 77 18 96/43 97 09/13/22 05:15 77 16 102/65 97 09/13/22 05:00 79 22 108/56 96 09/13/22 04:45 81 21 84/65 98 09/13/22 04:32 98 09/13/22 04:30 80 21 100/65 98 09/13/22 04:15 80 20 107/55 98 09/13/22 04:00 98.2 F 79 19 94/45 98 09/13/22 03:45 89 28 H 99/42 97 09/13/22 03:31 96 14 99/42 09/13/22 03:30 80 13 91/51 98 09/13/22 03:15 79 15 91/58 98 09/13/22 03:00 78 15 106/57 98 09/13/22 02:45 89 18 97/57 96 09/13/22 02:30 78 13 97/49 98 09/13/22 02:15 79 15 94/48 98 09/13/22 02:00 79 15 91/52 98 09/13/22 01:45 80 14 92/48 98 09/13/22 01:30 80 11 L 89/51 97 09/13/22 01:27 81 14 89/51 98 09/12/22 22:45 112 H 28 H 127/66 94 L 09/12/22 21:00 106 H 16 114/73 98 09/12/22 20:36 96 09/12/22 20:26 74 L 09/12/22 20:23 93 L 09/12/22 20:00 108 H 16 126/63 84 L 09/12/22 17:12 98.1 F 122 H 18 140/93 97 Intake and Output 09/12/22 09/13/22 09/13/22 22:59 06:59 14:59 Intake Total 2300.221 300 Output Total 460 40 Balance 1840.221 260 Intake: IV 2240 300 Calcium Gluconate in NaCl 100 2 gm In Saline 1 100ml. bag @ 100 mls/hr IVPB ONCE ONE Rx#:[id number] Dextrose 10% in Water 1, 840 000 ml @ 120 mls/hr IV . Q8H51M [facility] with Sodium Chloride 2.5MEQ/ml Vial 153.8 meq Rx#:[id number] Sodium Chloride 0.9% 1, 1400 200 000 ml @ 200 mls/hr IV . Q5H [facility] Rx#:[id number] Intake, IV Titration 60.221 Amount Dexmedetomidine/0.9% NaCl 60.221 (Pmx) 400 mcg In Empty Bag 1 bag @ 0.2 MCG/KG/HR 4.309 mls/hr IV .[id number] [facility] Rx#:[id number] Output: Urine 460 40 Other: Voiding Method Indwelling Catheter Weight 86.183 kg On examination this morning is obtunded. He is on room air No JVP noted neck is supple no facial asymmetry Lungs clear to auscultation fair air entry bilaterally Heart and unremarkable normal sinus rhythm Abdomen soft nontender Extreme no edema No evidence of trauma bruising. Neurologically obtunded Results - Lab Results Most recent lab results ABG pH 7.24 (7.35-7.45) L 09/12/22 23:15 ABG pCO2 47 mmHg (35-45) H 09/12/22 23:15 ABG pO2 246 mmHg (83-108) H 09/12/22 23:15 ABG HCO3 20 mmol/L (21-25) L 09/12/22 23:15 ABG O2 Saturation 99.7 % (94-97) H 09/12/22 23:15 Calcium 5.2 mg/dL (8.4-10.2) L* 09/13/22 05:30 Magnesium 1.8 mg/dL (1.6-2.3) 09/13/22 05:30 09/13/22 05:30 09/13/22 05:30 Assessment and Plan Assessment: Impression 1. Rhabdomyolysis with acute kidney injury secondary to amphetamine. CK is coming down from 43,000-17,000 this morning, urine output is marginal and creatinine is down from his 1.47 mg her deciliter to 0.67 2. Substance abuse 3. Hypocalcemia secondary to acute kidney injury, rhabdomyolysis, 4. Mild degree of non-gap acidosis bicarb 17 and gap of 7 secondary to acute kidney injury. 5. Blood gases show mild degree of CO2 narcosis with pCO2 of 47 and a pH of 7.24 from a combination of metabolic as well as respiratory acidosis 6. Mild degree of anemia hemoglobin is 10.1 cause not clear Recommendation 1. IV calcium chloride 4 g over 2 hours 2. Check serum phosphorus as it might go up because of the rhabdomyolysis 3. Because of the hypocalcemia avoid giving bicarb for right now as it might worsen the ionized calcium. 4. Check ionized calcium. 5. Monitor labs basic metabolic panel. Thank you for this consultation we'll continue to follow closely
[2022-09-13] MEDS ORDERED: CALCIUM GLUCONATE IVPB ONE (09:41)
[2022-09-13] MEDS ORDERED: NACL IVPB ONE (09:41)
[2022-09-13] MEDS ORDERED: SALINE IVPB ONE (09:41)
[2022-09-13] MEDS: CALCIUM GLUCONATE IN NACL 2 GM in SALINE 1 100ML.BAG IVPB SCH ×2 (10:01→12:21)
--- NOTE | 2022-09-13 10:19 | P.PN ---
Subjective Progress Note Date: 09/13/22 Patient continues to be obtunded. CK hasn't been improving. Calcium was very low. Sugars have been labile. Gen: Obtunded, in 4 point restraints HEENT: normocephalic, atraumatic, good hearing acuity, moist mucous membranes Resp: good air exchange, breathing comfortably with no accessory muscle use CVS: good distal perfusion x 4, GI: soft, NTTP, ND : no SPT, no CVAT, garcia catheter is present MSK: no pitting edema, no clubbing Neuro: non-focal, moving all extremities Hospital course: The patient is a 32-year-old male with a PMH of polysubstance abuse was brought to the emergency room after he was found laying down by the road. In the emergency room, patient was afebrile, 140/93, heart rate 122, 97% on room air. His oxygen requirements then escalated to requiring nonrebreather to saturate 96% and eventually was brought back down to nasal cannula at 4 L saturating in the mid 90s. Initial CBC demonstrated leukocytosis at 21, otherwise unremarkable. Chemistry showed chloride 94, CO2 of 21, anion gap of 22, BUN of 38, creatinine 1.47. CK was 43,040. Urine tox urine is positive for amphetamines, methamphetamines, marijuana. Patient's blood sugars have been hypoglycemic in the 50s to 70s, was started on a D10 drip and increase to 600. D10 drip was subsequently discontinued and patient was noted to be hypoglycemic again in the 60s, therefore was started on D5 drip with stable sugars between 87 and 100. Chest x-ray in the emergency room showed clear parenchyma without any evidence of overt heart failure. Patient was admitted to the intensive care unit due to agitation refractory to Ativan requiring Precedex drip. ABG in the ICU demonstrated a pH of 7.24, pCO2 47, pO2 246. Assessment: Rhabdomyolysis Acute kidney injury Metabolic encephalopathy Polysubstance abuse Plan: Today, patient is afebrile, 104/60, heart rate 73, 97% on 2 L nasal cannula. Repeat CBC shows hemoglobin of 10.1, down from 13.8, platelets of 143, down from 242. Basic metabolic panel shows chloride of 116, carbon dioxide of 17, anion gap is resolved at 7, BUN is 21, creatinine improved to 0.67, glucose was 673, calcium is 5.2. Magnesium was 1.8. CK improved to 17,409 from 43,000 Repeat CBC, basic metabolic panel, magnesium, CK ordered for tomorrow morning Pulmonology note reviewed, recommend keeping Precedex for agitation, IV fluids Nephrology note reviewed, recommend supplementing calcium gluconate for total 4 g, avoiding bicarb containing products, monitor urine output Continue D5/normal saline at 150 mL per hour Continue Ativan 2 mg IV every 2 hours as needed for agitation Continue Precedex drip, monitor for toxicity Patient is full code DVT prophylaxis with enoxaparin 40 mg subcu daily Objective - Vital Signs Vital signs: Vital Signs Temp 97.8 F 09/13/22 08:00 Pulse 69 09/13/22 09:00 Resp 17 09/13/22 09:00 BP 90/56 09/13/22 09:00 Pulse Ox 96 09/13/22 09:00 FiO2 Intake & Output 09/12/22 09/13/22 09/13/22 18:59 06:59 18:59 Intake Total 2300.221 800 Output Total 460 120 Balance 1840.221 680 Weight 86.183 kg 93.758 kg Intake: IV 2240 300 Calcium Gluconate in NaCl 100 2 gm In Saline 1 100ml. bag @ 100 mls/hr IVPB ONCE ONE Rx#:[id number] Dextrose 10% in Water 1, 840 000 ml @ 120 mls/hr IV . Q8H51M [facility] with Sodium Chloride 2.5MEQ/ml Vial 153.8 meq Rx#:[id number] Sodium Chloride 0.9% 1, 1400 200 000 ml @ 150 mls/hr IV . Q6H40M [facility] Rx#:[id number] Intake, IV Titration 60.221 500 Amount Dexmedetomidine/0.9% NaCl 60.221 (Pmx) 400 mcg In Empty Bag 1 bag @ 0.2 MCG/KG/HR 4.309 mls/hr IV .[id number] [facility] Rx#:[id number] Dextrose 5%-0.9% NaCl 1, 300 000 ml @ 150 mls/hr IV . Q6H40M [facility] Rx#:[id number] Magnesium Sulfate-D5w Pmx 100 1 gm In Dextrose/Water 1 100ml.bag @ 100 mls/hr IVPB ONCE ONE Rx#: [id number] Potassium Chloride 10 meq 100 In Water For Injection 1 100ml.bag @ 100 mls/hr IVPB Q1HR [facility] Rx#: [id number] Output: Urine 460 120 Other: Voiding Method Indwelling Catheter Indwelling Catheter - Labs CBC & Chem 7: 09/13/22 05:30 09/13/22 05:30 Labs: Abnormal Lab Results - Last 24 Hours (Table) 09/12/22 09/12/22 09/12/22 Range/Units 18:54 18:54 20:07 WBC 21.2 H (3.8-10.6) k/uL RBC (4.30-5.90) m/uL Hgb (13.0-17.5) gm/dL Hct (39.0-53.0) % Plt Count (150-450) k/uL Neutrophils # 18.9 H (1.3-7.7) k/uL Lymphocytes # 0.8 L (1.0-4.8) k/uL Monocytes # 1.1 H (0-1.0) k/uL ABG pH (7.35-7.45) ABG pCO2 (35-45) mmHg ABG pO2 (83-108) mmHg ABG HCO3 (21-25) mmol/L ABG O2 Saturation (94-97) % Chloride 94 L (98-107) mmol/L Carbon Dioxide 21 L (22-30) mmol/L BUN 38 H (9-20) mg/dL Creatinine 1.47 H (0.66-1.25) mg/dL Glucose 53 L (74-99) mg/dL POC Glucose (mg/dL) (70-110) mg/dL Calcium (8.4-10.2) mg/dL Creatine Kinase 82706 H* (55-170) U/L Ur Amphetamines Screen Detected H (NotDetected) U Methamphetamines Scrn Detected H (NotDetected) U Marijuana (THC) Screen Detected H (NotDetected) 09/12/22 09/13/22 09/13/22 Range/Units 23:15 05:30 05:30 WBC (3.8-10.6) k/uL RBC 3.30 L (4.30-5.90) m/uL Hgb 10.1 L D (13.0-17.5) gm/dL Hct 31.4 L (39.0-53.0) % Plt Count 143 L (150-450) k/uL Neutrophils # (1.3-7.7) k/uL Lymphocytes # (1.0-4.8) k/uL Monocytes # (0-1.0) k/uL ABG pH 7.24 L (7.35-7.45) ABG pCO2 47 H (35-45) mmHg ABG pO2 246 H (83-108) mmHg ABG HCO3 20 L (21-25) mmol/L ABG O2 Saturation 99.7 H (94-97) % Chloride 116 H (98-107) mmol/L Carbon Dioxide 17 L (22-30) mmol/L BUN 21 H (9-20) mg/dL Creatinine (0.66-1.25) mg/dL Glucose 673 H* (74-99) mg/dL POC Glucose (mg/dL) (70-110) mg/dL Calcium 5.2 L* (8.4-10.2) mg/dL Creatine Kinase (55-170) U/L Ur Amphetamines Screen (NotDetected) U Methamphetamines Scrn (NotDetected) U Marijuana (THC) Screen (NotDetected) 09/13/22 09/13/22 Range/Units 05:30 08:19 WBC (3.8-10.6) k/uL RBC (4.30-5.90) m/uL Hgb (13.0-17.5) gm/dL Hct (39.0-53.0) % Plt Count (150-450) k/uL Neutrophils # (1.3-7.7) k/uL Lymphocytes # (1.0-4.8) k/uL Monocytes # (0-1.0) k/uL ABG pH (7.35-7.45) ABG pCO2 (35-45) mmHg ABG pO2 (83-108) mmHg ABG HCO3 (21-25) mmol/L ABG O2 Saturation (94-97) % Chloride (98-107) mmol/L Carbon Dioxide (22-30) mmol/L BUN (9-20) mg/dL Creatinine (0.66-1.25) mg/dL Glucose (74-99) mg/dL POC Glucose (mg/dL) 62 L (70-110) mg/dL Calcium (8.4-10.2) mg/dL Creatine Kinase 53127 H* (55-170) U/L Ur Amphetamines Screen (NotDetected) U Methamphetamines Scrn (NotDetected) U Marijuana (THC) Screen (NotDetected)
[2022-09-13 12:22] LABS: Glucose,Whole Blood 59 mg/dL (70-110)
[2022-09-13] MEDS ORDERED: DEXTROSE 50% SYRINGE 50 ML IVP PRN (13:08)
[2022-09-13] MEDS: DEXTROSE 10% IN WATER 500 ML in EMPTY BAG 1 BAG IV SCH (13:09)
[2022-09-13 13:16] LABS: Glucose,Whole Blood 134 mg/dL (70-110)
[2022-09-13 15:07] LABS: Ionized Calcium 5.4 mg/dL (4.5-5.3)
[2022-09-13 15:12] LABS: African American GFR (CKD) >90 (>60 ml/min/1.73 sqM); Anion Gap 3 mmol/L; Blood Urea Nitrogen 19 mg/dL (9-20); Calcium 8.4 mg/dL (8.4-10.2); Carbon Dioxide 24 mmol/L (22-30); Chloride 112 mmol/L (98-107); Glucose 77 mg/dL (74-99); Non-African American GFR(CKD) >90 (>60 ml/min/1.73 sqM); Phosphorus 3.1 mg/dL (2.5-4.5); Potassium 4.7 mmol/L (3.5-5.1); Sodium 139 mmol/L (137-145)
[2022-09-13 16:10] LABS: Glucose,Whole Blood 91 mg/dL (70-110)
[2022-09-13 20:06] LABS: Glucose,Whole Blood 112 mg/dL (70-110)
[2022-09-14] MEDS: DEXMEDETOMIDINE/0.9% NACL(PMX) 400 MCG in EMPTY BAG 1 BAG IV SCH (04:23)
[2022-09-14 04:31] LABS: Basophils % (A) 0 %; Eosinophils # (A) 0.1 k/uL (0-0.7); Eosinophils % (A) 1 %; HCT 36.7 % (39.0-53.0); HGB 12.1 gm/dL (13.0-17.5); Lymphocytes # (A) 2.2 k/uL (1.0-4.8); Lymphocytes % (A) 29 %; MCH 31.1 pg (25.0-35.0); MCV 94.2 fL (80.0-100.0); Mean Platelet Volume 9.4; Monocytes # (A) 0.5 k/uL (0-1.0); Monocytes % (A) 7 %; Neutrophils # (A) 4.8 k/uL (1.3-7.7); Neutrophils % (A) 62 %; Platelet Count 156 k/uL (150-450); RBC 3.89 m/uL (4.30-5.90); RDW 12.7 % (11.5-15.5); WBC 7.7 k/uL (3.8-10.6)
[2022-09-14 04:51] LABS: African American GFR (CKD) >90 (>60 ml/min/1.73 sqM); Anion Gap 2 mmol/L; Blood Urea Nitrogen 14 mg/dL (9-20); Calcium 7.8 mg/dL (8.4-10.2); Carbon Dioxide 29 mmol/L (22-30); Chloride 109 mmol/L (98-107); Glucose 102 mg/dL (74-99); Magnesium 2.1 mg/dL (1.6-2.3); Non-African American GFR(CKD) >90 (>60 ml/min/1.73 sqM); Potassium 4.3 mmol/L (3.5-5.1); Sodium 140 mmol/L (137-145)
[2022-09-14] MEDS: LORazepam 2 MG/ML INJ IV PRN ×2 (04:51→14:15)
[2022-09-14 04:52] LABS: Glucose,Whole Blood 121 mg/dL (70-110)
[2022-09-14 05:40] LABS: Creatine Kinase 13354 U/L (55-170)
[2022-09-14] MEDS: DEXTROSE 5%-0.9% NACL 1,000 ML IV SCH ×3 (05:46→20:40)
[2022-09-14 07:37] LABS: Glucose,Whole Blood 108 mg/dL (70-110)
[2022-09-14] MEDS: ENOXAPARIN 40 MG/0.4 ML SYRINGE SQ SCH (09:03)
--- NOTE | 2022-09-14 09:49 | P.PN ---
Subjective Progress Note Date: 09/14/22 Principal diagnosis: Visit 32-year-old male seen in consultation because of rhabdomyolysis secondary to amphetamines and acute kidney injury. He was found unconscious and urine dr ug screen showed amphetamines and marijuana His creatinine has improved from 1.47 on admission to 0.76, urine output is 12 70 mL with an intake of 5384 mL He was also hypocalcemic therefore calcium was given 4 g over 2 hours., IV fluids were continued and D5 normal saline at 150 mL an hour. Although he was mildly acidotic, because of the severe hypocalcemia bicarb was avoided. This morning his calcium is improved to 7.8 from 5.2. He is arousable no the time but does not know where he is. Follows commands. Objective - Vital Signs Vital signs: Vital Signs Temp 98.0 F 09/14/22 04:00 Pulse 70 09/14/22 07:00 Resp 22 09/14/22 07:00 BP 114/69 09/14/22 07:00 Pulse Ox 94 L 09/14/22 07:00 FiO2 Intake & Output 09/13/22 09/14/22 09/14/22 17:59 06:59 18:59 Intake Total 193.987 Output Total 25 Balance 168.987 Weight Intake: IV 170 Calcium Gluconate in NaCl 2 gm In Saline 1 100ml. bag @ 100 mls/hr IVPB ONCE ONE Rx#:[id number] Dextrose 10% in Water 1, 000 ml @ 120 mls/hr IV . Q8H51M [facility] with Sodium Chloride 2.5MEQ/ml Vial 153.8 meq Rx#:[id number] Dextrose 10% in Water 500 20 ml In Empty Bag 1 bag @ 20 mls/hr IV .Q24H [facility] Rx #:[id number] Dextrose 5%-0.9% NaCl 1, 150 000 ml @ 150 mls/hr IV . Q6H40M [facility] Rx#:[id number] Sodium Chloride 0.9% 1, 000 ml @ 150 mls/hr IV . Q6H40M [facility] Rx#:[id number] Intake, IV Titration 23.987 Amount Dexmedetomidine/0.9% NaCl 23.987 (Pmx) 400 mcg In Empty Bag 1 bag @ 0.2 MCG/KG/HR 4.309 mls/hr IV .[id number] [facility] Rx#:[id number] Dextrose 10% in Water 500 ml In Empty Bag 1 bag @ 20 mls/hr IV .Q24H [facility] Rx #:[id number] Dextrose 5%-0.9% NaCl 1, 000 ml @ 150 mls/hr IV . Q6H40M [facility] Rx#:[id number] Magnesium Sulfate-D5w Pmx 1 gm In Dextrose/Water 1 100ml.bag @ 100 mls/hr IVPB ONCE ONE Rx#: [id number] Potassium Chloride 10 meq In Water For Injection 1 100ml.bag @ 100 mls/hr IVPB Q1HR [facility] Rx#: [id number] Sodium Chloride 0.9% 1, 000 ml @ 150 mls/hr IV . Q6H40M [facility] Rx#:[id number] Output: Urine 25 Other: Voiding Method Indwelling Catheter On examination somnolent but arousable and follows commands HEENT exam no JVP no facial asymmetry Lungs clear to auscultation good air entry bilaterally Heart sounds unremarkable Abdomen soft nontender Extremity exam no edema Neurologically arousable follows commands - Labs CBC & Chem 7: 09/14/22 03:49 09/14/22 03:49 Labs: Abnormal Lab Results - Last 24 Hours (Table) 09/13/22 09/13/22 09/13/22 Range/Units 05:30 12:20 13:15 RBC (4.30-5.90) m/uL Hgb (13.0-17.5) gm/dL Hct (39.0-53.0) % Chloride 116 H (98-107) mmol/L Carbon Dioxide 17 L (22-30) mmol/L BUN 21 H (9-20) mg/dL Glucose 673 H* (74-99) mg/dL POC Glucose (mg/dL) 59 L 134 H (70-110) mg/dL Calcium 5.2 L* (8.4-10.2) mg/dL Ionized Calcium Imelda (4.5-5.3) mg/dL Creatine Kinase (55-170) U/L 09/13/22 09/13/22 09/14/22 Range/Units 14:25 20:04 03:49 RBC 3.89 L (4.30-5.90) m/uL Hgb 12.1 L (13.0-17.5) gm/dL Hct 36.7 L (39.0-53.0) % Chloride 112 H (98-107) mmol/L Carbon Dioxide (22-30) mmol/L BUN (9-20) mg/dL Glucose (74-99) mg/dL POC Glucose (mg/dL) 112 H (70-110) mg/dL Calcium (8.4-10.2) mg/dL Ionized Calcium Imelda 5.4 H (4.5-5.3) mg/dL Creatine Kinase (55-170) U/L 09/14/22 09/14/22 Range/Units 03:49 04:50 RBC (4.30-5.90) m/uL Hgb (13.0-17.5) gm/dL Hct (39.0-53.0) % Chloride 109 H (98-107) mmol/L Carbon Dioxide (22-30) mmol/L BUN (9-20) mg/dL Glucose 102 H (74-99) mg/dL POC Glucose (mg/dL) 121 H (70-110) mg/dL Calcium 7.8 L (8.4-10.2) mg/dL Ionized Calcium Imelda (4.5-5.3) mg/dL Creatine Kinase 42434 H* (55-170) U/L Assessment and Plan Assessment: Impression 1. Rhabdomyolysis with acute kidney injury secondary to amphetamine. CK is coming down from 43,000-13, 354 this morning, urine output is improving and creatinine has come down from 1.4-0.76 2. Substance abuse 3. Hypocalcemia secondary to acute kidney injury, rhabdomyolysis, calcium is gone up 4. Mild degree of non-gap acidosis bicarb 17 and gap of 7 secondary to acute kidney injury. bicarb is up to 29 this morning 5. Blood gases show mild degree of CO2 narcosis with pCO2 of 47 and a pH of 7.24 from a combination of metabolic as well as respiratory acidosis 6. Mild degree of anemia hemoglobin is 10.1 cause not clear and hemoglobin improved to 12.1 this morning Recommendation 1. Continue IV fluids D5 normal saline at 150s and output 2. Transient total CK and BMP Thank you for this consultation we'll continue to follow closely
--- NOTE | 2022-09-14 10:01 | P.PN ---
Subjective Progress Note Date: 09/14/22 32-year-old male patient, presented to us with acute methamphetamine toxicity. Patient was found laying down by road. He was very agitated and combative and no information could be obtained from him. The phone number this in the chart was used to contact his family. The number turnout to be strong. The patient has history of polysubstance abuse. Urine drug screen was positive for amphetamine, methamphetamine and marijuana. His condition was uncontrollable. The patient received Ativan in the emergency total of 6 mg and he was also given Benadryl. Due to his extreme agitation, got transferred to the intensive care unit. Currently is on Precedex drip which is running at 0.4 mcg/kg/h. His more rest at this point in time. He is hemodynamically self and his blood pressure being 92/59. Cardiac rhythm is sinus at the rate of 78. Pulse ox is 98% on oxygen at 4 L. He was having a lower blood sugar. He was given D10 and the most recent blood sugar was 73. The D10 infusion was discontinued. His blood sugar was as low as 53. He does have a non-anion gap metabolic acidosis. Serum bicarbs at 17 with a gap of 7 and the sodium is at 140. BUN is at 20 oh with a creatinine of 0.6. To our knowledge, the patient is not diabetic. Nevertheless comes of 8.0 with a hemoglobin of 10.1 and a platelet count of 143. His chest x-ray revealed no acute abnormalities. CAT scan of the brain is not done. No other information could be obtained from the patient. The patient does have a Jaimes catheter. Urine output is in order of 40 mL an hour. CPKs 43,000 On today's evaluation of 09/14/2022, the patient was taken off Precedex. He is not agitated. However is still lethargic and sleepy and somnolent. He is slow in answering questions. He is getting the appropriate answers for now. He admits to do amphetamine. The patient went into acute psychosis and is currently calm and comfortable. He also went into acute rhabdomyolysis. CPK improved and is currently down to 13,000. He was having episodes of hypoglycemia throughout the day yesterday. He was placed on D10 and after taking him off the D10, continued to have frequent episodes of hypoglycemia and ultimately had to be placed again. He is currently on D10 at the rate of 20 mL an hour. His tolerating his diet this morning. Creatinine is stable at 0.7. Sodiums of 140 with a potassium level of 4.3. No significant acidosis. The white cell count is currently at 7.7 with a hemoglobin of 12.1. He did mention of harming himself yesterday. I think this was during his previous or psychotic events. Based on that, we have a sitter at the bedside. Is on Lovenox portably prophylaxis. No for neurological deficit. No seizure activity. He remains on oxygen at 2 L/m nasal cannula. Objective - Vital Signs Vital signs: Vital Signs Temp 98.0 F 09/14/22 04:00 Pulse 70 09/14/22 07:00 Resp 22 09/14/22 07:00 BP 114/69 09/14/22 07:00 Pulse Ox 94 L 09/14/22 07:00 FiO2 Intake & Output 09/13/22 09/14/22 09/14/22 17:59 06:59 18:59 Intake Total 193.987 Output Total 25 Balance 168.987 Weight Intake: IV 170 Calcium Gluconate in NaCl 2 gm In Saline 1 100ml. bag @ 100 mls/hr IVPB ONCE ONE Rx#:[id number] Dextrose 10% in Water 1, 000 ml @ 120 mls/hr IV . Q8H51M [facility] with Sodium Chloride 2.5MEQ/ml Vial 153.8 meq Rx#:[id number] Dextrose 10% in Water 500 20 ml In Empty Bag 1 bag @ 20 mls/hr IV .Q24H [facility] Rx #:[id number] Dextrose 5%-0.9% NaCl 1, 150 000 ml @ 150 mls/hr IV . Q6H40M [facility] Rx#:[id number] Sodium Chloride 0.9% 1, 000 ml @ 150 mls/hr IV . Q6H40M [facility] Rx#:[id number] Intake, IV Titration 23.987 Amount Dexmedetomidine/0.9% NaCl 23.987 (Pmx) 400 mcg In Empty Bag 1 bag @ 0.2 MCG/KG/HR 4.309 mls/hr IV .[id number] [facility] Rx#:[id number] Dextrose 10% in Water 500 ml In Empty Bag 1 bag @ 20 mls/hr IV .Q24H [facility] Rx #:[id number] Dextrose 5%-0.9% NaCl 1, 000 ml @ 150 mls/hr IV . Q6H40M [facility] Rx#:[id number] Magnesium Sulfate-D5w Pmx 1 gm In Dextrose/Water 1 100ml.bag @ 100 mls/hr IVPB ONCE ONE Rx#: [id number] Potassium Chloride 10 meq In Water For Injection 1 100ml.bag @ 100 mls/hr IVPB Q1HR [facility] Rx#: [id number] Sodium Chloride 0.9% 1, 000 ml @ 150 mls/hr IV . Q6H40M [facility] Rx#:[id number] Output: Urine 25 Other: Voiding Method Indwelling Catheter - Exam General: Disheveled, no distress, appears at stated age, overweight the patient is currently on 2 L of oxygen by nasal cannula, calm and comfortable and the patient is off Precedex. Derm: Superficial blisters on feet, warm Head: atraumatic, normocephalic, symmetric Eyes: EOMI, no lid lag, anicteric sclera, pupils equal round reactive to light ENT: Nose and ears atraumatic Neck: No cervical lymphadenopathy, trachea midline, supple Mouth: no lip lesion, mucus membranes moist Cardiovascular: S1S2 reg, no murmur, positive dorsalis pedis pulse bilateral, no edema Lungs: CTA bilateral, no rhonchi, no rales, no accessory muscle use Abdominal: soft, no guarding Ext: No gross muscle atrophy, no contractures Neuro: Alert and oriented 3 Psych: Somnolent, no agitation, no anxiety, denies any suicidal ideation this morning - Labs CBC & Chem 7: 09/14/22 03:49 09/14/22 03:49 Labs: Abnormal Lab Results - Last 24 Hours (Table) 09/13/22 09/13/22 09/13/22 Range/Units 05:30 12:20 13:15 RBC (4.30-5.90) m/uL Hgb (13.0-17.5) gm/dL Hct (39.0-53.0) % Chloride 116 H (98-107) mmol/L Carbon Dioxide 17 L (22-30) mmol/L BUN 21 H (9-20) mg/dL Glucose 673 H* (74-99) mg/dL POC Glucose (mg/dL) 59 L 134 H (70-110) mg/dL Calcium 5.2 L* (8.4-10.2) mg/dL Ionized Calcium Imelda (4.5-5.3) mg/dL Creatine Kinase (55-170) U/L 09/13/22 09/13/22 09/14/22 Range/Units 14:25 20:04 03:49 RBC 3.89 L (4.30-5.90) m/uL Hgb 12.1 L (13.0-17.5) gm/dL Hct 36.7 L (39.0-53.0) % Chloride 112 H (98-107) mmol/L Carbon Dioxide (22-30) mmol/L BUN (9-20) mg/dL Glucose (74-99) mg/dL POC Glucose (mg/dL) 112 H (70-110) mg/dL Calcium (8.4-10.2) mg/dL Ionized Calcium Imelda 5.4 H (4.5-5.3) mg/dL Creatine Kinase (55-170) U/L 09/14/22 09/14/22 Range/Units 03:49 04:50 RBC (4.30-5.90) m/uL Hgb (13.0-17.5) gm/dL Hct (39.0-53.0) % Chloride 109 H (98-107) mmol/L Carbon Dioxide (22-30) mmol/L BUN (9-20) mg/dL Glucose 102 H (74-99) mg/dL POC Glucose (mg/dL) 121 H (70-110) mg/dL Calcium 7.8 L (8.4-10.2) mg/dL Ionized Calcium Imelda (4.5-5.3) mg/dL Creatine Kinase 98581 H* (55-170) U/L Assessment and Plan Plan: Drugs induced psychosis, recovering Acute amphetamine toxicity , recovering Acute mental status change secondary to above Acute agitation secondary to above, currently off Precedex infusion Acute rhabdomyolysis Hypoglycemia treated with D10, improved Non-anion gap metabolic acidosis History of polysubstance abuse Plan If the patient oxygen 2 L /m nasal cannula his current pulse ox is 96%. Chest x-ray is clear off Precedex infusion Continue D5 0.9 at 1 50 mL an hour Monitor CPK , levels are down trending Monitor renal function and evaluate for development of any acute injury No need for CAT scan of the brain Monitor the blood sugar. The patient IV Protonix 40 mg every 24 hours Lovenox 40 mg subcu for DVT prophylaxis Psychiatric evaluation to be done The patient will be kept in the ICU for now. Appreciate efforts done by the nursing staff Continue to follow
[2022-09-14] MEDS: DEXTROSE 10% IN WATER 500 ML in EMPTY BAG 1 BAG IV SCH (10:02)
--- NOTE | 2022-09-14 11:02 | P.PN ---
Subjective Progress Note Date: 09/14/22 Patients mentation has improved, but does not remember events leading to hospitalization. CK improving. Gen: Obtunded, in 4 point restraints HEENT: normocephalic, atraumatic, good hearing acuity, moist mucous membranes Resp: good air exchange, breathing comfortably with no accessory muscle use CVS: good distal perfusion x 4, GI: soft, NTTP, ND : no SPT, no CVAT, garcia catheter is present MSK: no pitting edema, no clubbing Neuro: non-focal, moving all extremities Hospital course: The patient is a 32-year-old male with a PMH of polysubstance abuse was brought to the emergency room after he was found laying down by the road. In the emergency room, patient was afebrile, 140/93, heart rate 122, 97% on room air. His oxygen requirements then escalated to requiring nonrebreather to saturate 96% and eventually was brought back down to nasal cannula at 4 L saturating in the mid 90s. Initial CBC demonstrated leukocytosis at 21, otherwise unremarkable. Chemistry showed chloride 94, CO2 of 21, anion gap of 22, BUN of 38, creatinine 1.47. CK was 43,040. Urine tox urine is positive for amphetamines, methamphetamines, marijuana. Patient's blood sugars have been hy poglycemic in the 50s to 70s, was started on a D10 drip and increase to 600. D10 drip was subsequently discontinued and patient was noted to be hypoglycemic again in the 60s, therefore was started on D5 drip with stable sugars between 87 and 100. Chest x-ray in the emergency room showed clear parenchyma without any evidence of overt heart failure. Patient was admitted to the intensive care unit due to agitation refractory to Ativan requiring Precedex drip. ABG in the ICU demonstrated a pH of 7.24, pCO2 47, pO2 246. Assessment: Rhabdomyolysis Acute kidney injury Metabolic encephalopathy Polysubstance abuse Plan: Today, patient is afebrile, 119/66, heart rate 76, 98% on 2 L of nasal cannula Repeat CBC shows hemoglobin of 12.1, normal platelets. Basic metabolic panel shows chloride of 109, BUN of 14, creatinine of 0.76 Magnesium was 2.1 CK improved to 13,354 from 17,409 Repeat CBC, basic metabolic panel, magnesium, CK ordered for tomorrow morning Pulmonology note reviewed, discontinue Precedex drip, monitor blood sugar Nephrology note reviewed, continue D5/half-normal drip, monitor urine output Continue D5/normal saline at 150 mL per hour Continue Ativan 2 mg IV every 2 hours as needed for agitation Psychiatry consulted given patient's suicidal ideation as endorsed to the nursing staff Patient is full code DVT prophylaxis with enoxaparin 40 mg subcu daily Objective - Vital Signs Vital signs: Vital Signs Temp 97.8 F 09/14/22 08:00 Pulse 76 09/14/22 10:00 Resp 18 09/14/22 10:00 BP 119/66 09/14/22 10:00 Pulse Ox 98 09/14/22 10:00 FiO2 Intake & Output 09/13/22 09/14/22 09/14/22 17:59 06:59 18:59 Intake Total 682.409 Output Total 125 Balance 557.409 Weight Intake: IV 640 Calcium Gluconate in NaCl 2 gm In Saline 1 100ml. bag @ 100 mls/hr IVPB ONCE ONE Rx#:[id number] Dextrose 10% in Water 1, 000 ml @ 120 mls/hr IV . Q8H51M [facility] with Sodium Chloride 2.5MEQ/ml Vial 153.8 meq Rx#:[id number] Dextrose 10% in Water 500 40 ml In Empty Bag 1 bag @ 20 mls/hr IV .Q24H [facility] Rx #:[id number] Dextrose 5%-0.9% NaCl 1, 600 000 ml @ 150 mls/hr IV . Q6H40M [facility] Rx#:[id number] Sodium Chloride 0.9% 1, 000 ml @ 150 mls/hr IV . Q6H40M [facility] Rx#:[id number] Intake, IV Titration 42.409 Amount Dexmedetomidine/0.9% NaCl 42.409 (Pmx) 400 mcg In Empty Bag 1 bag @ 0.2 MCG/KG/HR 4.309 mls/hr IV .[id number] [facility] Rx#:[id number] Dextrose 10% in Water 500 ml In Empty Bag 1 bag @ 20 mls/hr IV .Q24H [facility] Rx #:[id number] Dextrose 5%-0.9% NaCl 1, 000 ml @ 150 mls/hr IV . Q6H40M [facility] Rx#:[id number] Magnesium Sulfate-D5w Pmx 1 gm In Dextrose/Water 1 100ml.bag @ 100 mls/hr IVPB ONCE ONE Rx#: [id number] Potassium Chloride 10 meq In Water For Injection 1 100ml.bag @ 100 mls/hr IVPB Q1HR [facility] Rx#: [id number] Sodium Chloride 0.9% 1, 000 ml @ 150 mls/hr IV . Q6H40M [facility] Rx#:[id number] Output: Urine 125 Other: Voiding Method Indwelling Catheter - Labs CBC & Chem 7: 09/14/22 03:49 09/14/22 03:49 Labs: Abnormal Lab Results - Last 24 Hours (Table) 09/13/22 09/13/22 09/13/22 Range/Units 12:20 13:15 14:25 RBC (4.30-5.90) m/uL Hgb (13.0-17.5) gm/dL Hct (39.0-53.0) % Chloride 112 H (98-107) mmol/L Glucose (74-99) mg/dL POC Glucose (mg/dL) 59 L 134 H (70-110) mg/dL Calcium (8.4-10.2) mg/dL Ionized Calcium Imelda 5.4 H (4.5-5.3) mg/dL Creatine Kinase (55-170) U/L 09/13/22 09/14/22 09/14/22 Range/Units 20:04 03:49 03:49 RBC 3.89 L (4.30-5.90) m/uL Hgb 12.1 L (13.0-17.5) gm/dL Hct 36.7 L (39.0-53.0) % Chloride 109 H (98-107) mmol/L Glucose 102 H (74-99) mg/dL POC Glucose (mg/dL) 112 H (70-110) mg/dL Calcium 7.8 L (8.4-10.2) mg/dL Ionized Calcium Imelda (4.5-5.3) mg/dL Creatine Kinase 66641 H* (55-170) U/L 09/14/22 Range/Units 04:50 RBC (4.30-5.90) m/uL Hgb (13.0-17.5) gm/dL Hct (39.0-53.0) % Chloride (98-107) mmol/L Glucose (74-99) mg/dL POC Glucose (mg/dL) 121 H (70-110) mg/dL Calcium (8.4-10.2) mg/dL Ionized Calcium Imelda (4.5-5.3) mg/dL Creatine Kinase (55-170) U/L
[2022-09-14 12:25] LABS: Glucose,Whole Blood 73 mg/dL (70-110)
[2022-09-14 14:14] LABS: Glucose,Whole Blood 79 mg/dL (70-110)
[2022-09-14 17:56] LABS: Glucose,Whole Blood 85 mg/dL (70-110)
[2022-09-14 20:18] LABS: Glucose,Whole Blood 109 mg/dL (70-110)
[2022-09-15] MEDS: DEXTROSE 5%-0.9% NACL 1,000 ML IV SCH ×3 (03:16→15:12)
[2022-09-15 07:29] LABS: Glucose,Whole Blood 96 mg/dL (70-110)
[2022-09-15 07:48] VITALS: RESP 20
[2022-09-15] MEDS: ENOXAPARIN 40 MG/0.4 ML SYRINGE SQ SCH (09:06)
[2022-09-15 09:10] LABS: Basophils # (A) 0.02 X 10*3/uL (0.00-0.10); Basophils % (A) 0.3 %; Eosinophils # (A) 0.09 X 10*3/uL (0.04-0.35); Eosinophils % (A) 1.5 %; HCT 32.6 % (39.6-50.0); HGB 10.5 g/dL (13.0-17.0); Immature Grans, Automated 0 %; Lymphocytes # (A) 2.29 X 10*3/uL (0.90-5.00); MCH 30.2 pg (27.0-32.0); MCHC 32.2 g/dL (32.0-37.0); MCV 93.7 fL (80.0-97.0); Monocytes # (A) 0.61 X 10*3/uL (0.20-1.00); Monocytes % (A) 9.9 %; NRBC Per 100 WBC 0 /100 WBCS (0.0-0.0); Neutrophils # (A) 3.18 X 10*3/uL (1.80-7.70); Neutrophils % (A) 51.3 %; Platelet Count 164 X 10*3/uL (140-440); RBC 3.48 X 10*6/uL (4.40-5.60); RDW 12.9 % (11.5-14.5); WBC 6.19 X 10*3/uL (4.50-10.00)
[2022-09-15 09:14] LABS: African American GFR (CKD) 135.1 (60.0-200.0); Anion Gap 6.3 mmol/L (10.00-18.00); Blood Urea Nitrogen 8.8 mg/dL (9.0-27.0); Calcium 7.9 mg/dL (8.7-10.3); Carbon Dioxide 27.7 mmol/L (20.0-27.5); Magnesium 1.9 mg/dL (1.5-2.4); Non-African American GFR(CKD) 116.6 (60.0-200.0); Potassium 3.7 mmol/L (3.5-5.5)
--- NOTE | 2022-09-15 11:20 | P.PN ---
Subjective Progress Note Date: 09/15/22 32-year-old male patient, presented to us with acute methamphetamine toxicity. Patient was found laying down by road. He was very agitated and combative and no information could be obtained from him. The phone number this in the chart was used to contact his family. The number turnout to be strong. The patient has history of polysubstance abuse. Urine drug screen was positive for amphetamine, methamphetamine and marijuana. His condition was uncontrollable. The patient received Ativan in the emergency total of 6 mg and he was also given Benadryl. Due to his extreme agitation, got transferred to the intensive care unit. Currently is on Precedex drip which is running at 0.4 mcg/kg/h. His more rest at this point in time. He is hemodynamically self and his blood pressure being 92/59. Cardiac rhythm is sinus at the rate of 78. Pulse ox is 98% on oxygen at 4 L. He was having a lower blood sugar. He was given D10 and the most recent blood sugar was 73. The D10 infusion was discontinued. His blood sugar was as low as 53. He does have a non-anion gap metabolic acidosis. Serum bicarbs at 17 with a gap of 7 and the sodium is at 140. BUN is at 20 oh with a creatinine of 0.6. To our knowledge, the patient is not diabetic. Nevertheless comes of 8.0 with a hemoglobin of 10.1 and a platelet count of 143. His chest x-ray revealed no acute abnormalities. CAT scan of the brain is not done. No other information could be obtained from the patient. The patient does have a Jaimes catheter. Urine output is in order of 40 mL an hour. CPKs 43,000 On today's evaluation of 09/14/2022, the patient was taken off Precedex. He is not agitated. However is still lethargic and sleepy and somnolent. He is slow in answering questions. He is getting the appropriate answers for now. He admits to do amphetamine. The patient went into acute psychosis and is currently calm and comfortable. He also went into acute rhabdomyolysis. CPK improved and is currently down to 13,000. He was having episodes of hypoglycemia throughout the day yesterday. He was placed on D10 and after t aking him off the D10, continued to have frequent episodes of hypoglycemia and ultimately had to be placed again. He is currently on D10 at the rate of 20 mL an hour. His tolerating his diet this morning. Creatinine is stable at 0.7. Sodiums of 140 with a potassium level of 4.3. No significant acidosis. The white cell count is currently at 7.7 with a hemoglobin of 12.1. He did mention of harming himself yesterday. I think this was during his previous or psychotic events. Based on that, we have a sitter at the bedside. Is on Lovenox portably prophylaxis. No for neurological deficit. No seizure activity. He remains on oxygen at 2 L/m nasal cannula. The patient is seen today 09/15/2022 in follow-up on the regular medical floor. He is currently resting comfortably in bed. Awake and alert in no acute distress. He is maintaining good O2 saturations in the 90s on room air. He has D5.9 normal saline at 150 ML's per hour. White count 6.1. Hemoglobin 10.5. Sodium 142. Potassium 3.7. BUN 8.8. Creatinine 0.8. Blood sugar 96. Most recent CK level trending down to 13,354. Last Ativan given was yesterday afternoon. Lovenox for DVT prophylaxis. 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 Objective - Vital Signs Vital signs: Vital Signs Temp 98.6 F 09/15/22 07:47 Pulse 82 09/15/22 07:47 Resp 20 09/15/22 07:47 BP 119/74 09/15/22 07:47 Pulse Ox 92 L 09/15/22 07:47 FiO2 Intake & Output 09/14/22 09/15/22 09/15/22 18:59 06:59 18:59 Intake Total 1282.409 300 Output Total 225 Balance 1057.409 300 Weight 93.8 kg Intake: IV 1240 Dextrose 10% in Water 500 40 ml In Empty Bag 1 bag @ 20 mls/hr IV .Q24H [facility] Rx #:[id number] Dextrose 5%-0.9% NaCl 1, 1200 000 ml @ 150 mls/hr IV . Q6H40M [facility] Rx#:[id number] Intake, IV Titration 42.409 Amount Dexmedetomidine/0.9% NaCl 42.409 (Pmx) 400 mcg In Empty Bag 1 bag @ 0.2 MCG/KG/HR 4.309 mls/hr IV .[id number] [facility] Rx#:[id number] Oral 300 Output: Urine 225 Other: Voiding Method Indwelling Catheter # Voids 2 1 - Exam GENERAL EXAM: Alert, calm, cooperative 32-year-old male, on room air, comfortable in no apparent distress. HEAD: Normocephalic. EYES: Normal reaction of pupils, equal size. NOSE: Clear with pink turbinates. THROAT: No erythema or exudates. NECK: No masses, no JVD. CHEST: No chest wall deformity. LUNGS: Equal air entry with no crackles, wheeze, rhonchi or dullness. CVS: S1 and S2 normal with no audible murmur, regular rhythm. ABDOMEN: No hepatosplenomegaly, normal bowel sounds, no guarding or rigidity. SPINE: No scoliosis or deformity SKIN: No rashes CENTRAL NERVOUS SYSTEM: No focal deficits, tone is normal in all 4 extremities. EXTREMITIES: There is no peripheral edema. No clubbing, no cyanosis. Peripheral pulses are intact. - Labs CBC & Chem 7: 09/15/22 05:00 09/15/22 05:00 Labs: Abnormal Lab Results - Last 24 Hours (Table) 09/15/22 09/15/22 Range/Units 05:00 05:00 RBC 3.48 L (4.40-5.60) X 10*6/uL Hgb 10.5 L (13.0-17.0) g/dL Hct 32.6 L (39.6-50.0) % Carbon Dioxide 27.7 H (20.0-27.5) mmol/L Anion Gap 6.30 L (10.00-18.00) mmol/L BUN 8.8 L (9.0-27.0) mg/dL BUN/Creatinine Ratio 11.00 L (12.00-20.00) Ratio Calcium 7.9 L (8.7-10.3) mg/dL Assessment and Plan Assessment: Drugs induced psychosis, recovering Acute amphetamine toxicity , recovering Acute mental status change secondary to above Acute agitation secondary to above, currently off Precedex infusion Acute rhabdomyolysis, CK level is trending down Hypoglycemia treated with D10, improved Non-anion gap metabolic acidosis History of polysubstance abuse Homelessness Plan: The patient was seen and evaluated Labs and medications reviewed Remains on D5 0.9% normal saline at 150 MLS per hour Follow-up CK level pending factory laborer remains at the bedside Psychiatry consulted We will continue to follow I have personally seen and examined the patient, performed the documentation and the assessment and plan as written. Number of minutes spent on the visit: 10.
[2022-09-15 11:28] LABS: Glucose,Whole Blood 78 mg/dL (70-110)
--- NOTE | 2022-09-15 12:31 | P.PN ---
Subjective Patient is seen for follow-up for acute kidney injury and rhabdomyolysis. Renal function has improved with creatinine down to 0.8 mg/dL from peak at 1.47. [place] was [address]72 yesterday down from [address]00 on admission complaints today Patient has been eating and has been voiding as well. Sitter noted at bedside Objective - Vital Signs Vital signs: Vital Signs Temp 98.6 F 09/15/22 07:47 Pulse 82 09/15/22 07:47 Resp 20 09/15/22 07:47 BP 119/74 09/15/22 07:47 Pulse Ox 92 L 09/15/22 07:47 FiO2 Intake & Output 09/14/22 09/15/22 09/15/22 18:59 06:59 18:59 Intake Total 1282.409 300 118 Output Total 225 Balance 1057.409 300 118 Weight 93.8 kg Intake: IV 1240 Dextrose 10% in Water 500 40 ml In Empty Bag 1 bag @ 20 mls/hr IV .Q24H SAM Rx #:[id number] Dextrose 5%-0.9% NaCl 1, 1200 000 ml @ 150 mls/hr IV . Q6H40M SAM Rx#:[id number] Intake, IV Titration 42.409 Amount Dexmedetomidine/0.9% NaCl 42.409 (Pmx) 400 mcg In Empty Bag 1 bag @ 0.2 MCG/KG/HR 4.309 mls/hr IV .[id number] SAM Rx#:[id number] Oral 300 118 Output: Urine 225 Other: Voiding Method Indwelling Catheter Toilet # Voids 2 1 - Exam Sleeping but arousable's, comfortable, no acute distress Abdomen is soft nontender Examination the lungs bilateral breath sounds are heard At examination of the heart S1 and S2 Examination of the lower extremity shows no evidence of edema - Labs CBC & Chem 7: 09/15/22 05:00 09/15/22 05:00 Labs: Abnormal Lab Results - Last 24 Hours (Table) 09/15/22 09/15/22 Range/Units 05:00 05:00 RBC 3.48 L (4.40-5.60) X 10*6/uL Hgb 10.5 L (13.0-17.0) g/dL Hct 32.6 L (39.6-50.0) % Carbon Dioxide 27.7 H (20.0-27.5) mmol/L Anion Gap 6.30 L (10.00-18.00) mmol/L BUN 8.8 L (9.0-27.0) mg/dL BUN/Creatinine Ratio 11.00 L (12.00-20.00) Ratio Calcium 7.9 L (8.7-10.3) mg/dL Assessment and Plan Assessment: 1. Rhabdomyolysis with acute kidney injury secondary to amphetamine. CK is coming down from 43,000-13, 354 , urine output is improving and creatinine has improved as well. 2. Substance abuse 3. Hypocalcemia secondary to acute kidney injury, rhabdomyolysis, improved 4. Mild degree of non-gap acidosis bicarb 17 and gap of 7 secondary to acute kidney injury. bicarb is up to 29 this morning 5. Blood gases show mild degree of CO2 narcosis with pCO2 of 47 and a pH of 7.24 from a combination of metabolic as well as respiratory acidosis 6. Mild degree of anemia hemoglobin is 10.1 cause not clear and hemoglobin improved to 12.1 this morning Plan: Continue IV fluids Repeat CK
--- NOTE | 2022-09-15 13:56 | P.DS ---
Providers Date of admission: 09/12/22 21:05 Expected date of discharge: 09/15/22 Attending physician: Oswaldo Rosen MD Consults: 09/12/22 21:05 Consult Physician Routine Consulting Provider: Siddharth Phillip Consult Reason/Comments: rhabdo Do you want consulting provider notified?: Yes 09/12/22 22:50 Consult Physician Stat Consulting Provider: Dino Bauer Consult Reason/Comments: ICU management Do you want consulting provider notified?: Already Contacted 09/13/22 14:52 Consult Physician Stat Consulting Provider: Lionel Alatorre Consult Reason/Comments: suicidal thoughts Do you want consulting provider notified?: Already Contacted Primary care physician: Stated None Hospital Course: Assessment: Rhabdomyolysis Acute kidney injury Metabolic encephalopathy Polysubstance abuse Hospital course: The patient is a 32-year-old male with a PMH of polysubstance abuse was brought to the emergency room after he was found laying down by the road. In the emergency room, patient was afebrile, 140/93, heart rate 122, 97% on room air. His oxygen requirements then escalated to requiring nonrebreather to saturate 96% and eventually was brought back down to nasal cannula at 4 L saturating in the mid 90s. Initial CBC demonstrated leukocytosis at 21, otherwise unremarkable. Chemistry showed chloride 94, CO2 of 21, anion gap of 22, BUN of 38, creatinine 1.47. CK was 43,040. Urine tox urine is positive for amphetamines, methamphetamines, marijuana. Patient's blood sugars have been hypoglycemic in the 50s to 70s, was started on a D10 drip and increase to 600. D10 drip was subsequently discontinued and patient was noted to be hypoglycemic again in the 60s, therefore was started on D5 drip with stable sugars between 87 and 100. Chest x-ray in the emergency room showed clear parenchyma without any evidence of overt heart failure. Patient was admitted to the intensive care unit due to agitation refractory to Ativan requiring Precedex drip. ABG in the ICU demonstrated a pH of 7.24, pCO2 47, pO2 246. Patient's mentation started to improve after 24 hours of hospitalization, and by 48 hours of hospitalization returned back to normal. Patient was weaned off of the Precedex. Patient's last dose of Ativan was the day before discharge. Patient was seen by psychiatry for suicidal ideation and and cleared from their perspective. Patient's CK was noted to down trend with IV fluids, and he was tolerating diet by the day of discharge. He should follow up his primary care physician as well as [facility]. I spent 38 minutes coordinating this discharge. Gen: Obtunded, in 4 point restraints HEENT: normocephalic, atraumatic, good hearing acuity, moist mucous membranes Resp: good air exchange, breathing comfortably with no accessory muscle use CVS: good distal perfusion x 4, GI: soft, NTTP, ND : no SPT, no CVAT, garcia catheter is present MSK: no pitting edema, no clubbing Neuro: non-focal, moving all extremities Patient Condition at Discharge: Good Plan - Discharge Summary Discharge Rx Participant: No New Discharge Prescriptions: No Action No Known Home Medications Discharge Medication List No Known Home Medications 09/23/14 [History] Follow up Appointment(s)/Referral(s): None,Stated [Primary Care Provider] - 1-2 days [facility] [NON-STAFF] - 1 Week Discharge Disposition: HOME SELF-CARE
[2022-09-15 14:46] VITALS: BP 144/83; PULSE 89; TEMP 99.2
[2022-09-15] MEDS: DEXTROSE 10% IN WATER 500 ML in EMPTY BAG 1 BAG IV SCH (15:11)
--- NOTE | 2022-09-15 16:15 | P.PN ---
Progress Note - Text Progress Note Date: 09/15/22 Psychiatry follow-up note: Interval history: Patient was seen this morning and was directable and agreeable to speak with internal communications writer. He is alert and oriented to person, place, time and situation. He is calm and cooperative. He reports good mood, sleep and appetite. Thoughts are linear and logical. He denies being depressed or needing an antidepressant. He declines residential substance abuse treatment but agrees he would benefit from seeing a therapist on an outpatient basis. He denies any suicidal or homicidal ideation, intent or plan. He denies any auditory or visual hallucinations. No paranoid ideation expressed or elicited on assessment. He reports the psychosis only occurs when he abuses Sophie, which he plan to abstain from in the future. Mental status exam: General Appearance: Patient appears to be stated age, well-built tall male with tattoos on chest and arms. Behavior: No agitated behavior. Patient is calm and directable. Speech: Patient's speech is fluent and non-pressured. Speaks with soft tone. Mood/Affect: Mood is good, affect is congruent and constricted. Suicidality/Homicidality: Patient denies having any suicidal or homicidal ideation intent or plan. Perceptions: Patient denies any auditory or visual hallucinations. Though content/process: There is no evidence of any delusional thought content and thought process is linear and goal-directed. Memory and concentration: AOX3, grossly intact for the purposes of this session Judgment and insight: Improving mildly IMPRESSIONS: Substance (amphetamine)-induced psychosis, resolved Delirium due to multiple etiologies (polysubstance abuse, rhabdomyolysis with acute kidney injury, metabolic/respiratory acidosis), resolved Amphetamine abuse Cannabis abuse PLAN: -At this time patient DOES NOT meet criteria for inpatient psychiatric admission. -Continue to treat underlying medical issues as you are -correction worker to provide patient with outpatient mental health/psychiatry resources for appropriate follow up upon discharge -Senior Gis Analyst spoke with patient about substance abuse and the harmful effects on medical and mental health, patient verbally understood and agreed. -correction worker to provide patient substance use treatment resources including AA/NA meetings in the community. -Communicated plan to patient's nurse. -Psychiatry will sign off at this time -Please contact with any questions.
--- NOTE | 2022-09-15 17:00 | P.PN ---
Progress Note - Text Progress Note Date: 09/15/22 Psychiatry follow-up note: Interval history: Patient was seen this afternoon and was directable and agreeable to speak with rfp writer. He was found asleep in bed with sitter at bedside. On awakening, he is alert and oriented to person, place, time and situation. He is calm and cooperative. He reports good mood, sleep and appetite. Thoughts are linear and logical. He denies depressed mood. He reports he is linked with [facility] and plans to follow-up there on Thursday. He declines residential substance abuse treatment. He denies any suicidal or homicidal ideation, intent or plan. He denies any auditory or visual hallucinations. No paranoid ideation expressed or elicited on assessment. Mental status exam: General Appearance: Patient appears to be stated age, well-built male with tattoos on chest and arms. Behavior: No agitated behavior. Patient is calm and directable. Speech: Patient's speech is fluent and non-pressured. Mood/Affect: Mood is "alright", affect is congruent and constricted. Suicidality/Homicidality: Patient denies having any suicidal or homicidal ideation intent or plan. Perceptions: Patient denies any auditory or visual hallucinations. Though content/process: There is no evidence of any delusional thought content and thought process is linear and goal-directed. Memory and concentration: AOX3, grossly intact for the purposes of this session Judgment and insight: Poor IMPRESSIONS: Substance (amphetamine)-induced psychosis, resolved Delirium due to multiple etiologies (polysubstance abuse, rhabdomyolysis with acute kidney injury, metabolic/respiratory acidosis), resolved Amphetamine use disorder Cannabis use disorder PLAN: -At this time patient DOES NOT meet criteria for inpatient psychiatric admission. -Continue to treat underlying medical issues as you are -Discontinue 1:1 sitter -tipple worker to provide patient with outpatient mental health/psychiatry resources for appropriate follow up upon discharge -He reports he is linked with [facility] and plans to follow-up there on Thursday. -Ornamental Painter spoke with patient about substance abuse and the harmful effects on medical and mental health, patient verbally understood and agreed. -tipple worker to provide patient substance use treatment resources including AA/NA meetings in the community. -Communicated plan to patient's nurse. -Psychiatry will sign off at this time -Please contact with any questions.
--- NOTE | 2022-09-15 17:24 | P.CN ---
Psychiatric Consult - . Consult date: 09/14/22 Consult:: IDENTIFYING DATA: This patient is a 32 year old single male who lives with his "Uncle Eduard". REASON FOR REFERRAL: Psychiatry was consulted for suicidal thoughts. HISTORY OF PRESENT ILLNESS: The patient presented to the hospital after being found on the side of the road. Per records "Patient states he snorted a couple lines of methamphetamines on top of smoking WAX and taking suboxone. Patient was brought in by EMS. Apparently bystanders noted the patient was lying on the road. Police was called ultimately led to EMS being called and patient be brought to the ER. Patient has any suicidal or homicidal ideation. Patient allegedly relapsed on use of drugs." "The patient was very agitated and combative at the time of interview, thereby no meaningful history could be obtained. The patient had reportedly admitted to using multiple substances throughout the day today including Suboxone. Urine toxicology was positive for methamphetamines, amphetamines, and marijuana. Laboratory evaluation was also remarkable for creatine kinase of 43,040. Patient received Ativan IV push 2 mg 2 in the emergency room." On my assessment, patient is found in his room with unsteady gate and 1:1 sitter at bedside to maintain safety. He is an unreliable historian. Insight and judgment are poor. He has difficulty sustaining attention. He often provides vague and incomplete responses. He states he doesn't know what he was doing prior to admission, but thinks he was trying to make it home to [place]. He is oriented to person, month/year. At this time, patient denies any suicidal or homicidal ideation, intent or plan. Patient denies any auditory, visual hallucinations and denies any paranoia or delusions. Patients admits to using methamphetamines, marijuana currently. He reports in the past he used "all of them" drugs. He denies recent alcohol use. PAST PSYCHIATRIC HISTORY: Patient has a history of polysubstance abuse. Patient denies being on any psychiatric medications. Patient denies any previous psychiatric hospitalizations. Patient reports he is linked with [facility] and claims to have an appointment on Thursday. Patient reports he previously overdosed on pills in [place]. PAST MEDICAL HISTORY: Rhabdomyolsysis ALLERGIES: as per EMR. CHEMICAL DEPENDENCY HISTORY: as per HPI. FAMILY PSYCHIATRIC/SUBSTANCE USE HISTORY: He does not know SOCIAL HISTORY: Lives with his "Uncle Eduard" He has been to half-way multiple times, and recently released on parole. MENTAL STATUS EXAM: General Appearance: Patient appears to be stated age, disheveled, tattoos, multiple scabs/lesions near his nose and fingers likely from snorting methamphetamines Behavior: Patient is walking around his room with unsteady gait, sits down on hospital bed. He is animated and confused. Speech: Patient's speech is fluent and non-pressured. Mood/Affect: Patient reports their mood is "great", affect is congruent Suicidality/Homicidality: Patient denies having any suicidal or homicidal ideat ion intent or plan. Perceptions: Patient denies any visual hallucinations and denies any auditory hallucinations. Though content/process: There is no evidence of any delusional thought content and thought process is linear and goal-directed. Memory and concentration: Alert and oriented to person, month/year Judgment and insight: Poor IMPRESSIONS: Substance (amphetamine)-induced psychosis, resolved Delirium due to multiple etiologies (polysubstance abuse, rhabdomyolysis with acute kidney injury, metabolic/respiratory acidosis) Amphetamine abuse Cannabis abuse PLAN: -At this time patient DOES NOT meet criteria for inpatient psychiatric admission. -Patient DOES NOT have decision making capacity at this time and is unable to reason through and communicate/appreciate the risks, benefits and alternatives to treatment. -Delirium precautions recommended with patient including - avoiding use of narcotics and COUNSELING PSYCHOLOGIST sedatives, limit anticholinergic medications when possible, frequent re-orientation, minimize use of restraints, open window shades during the day and close them at night -Would recommend the following medication changes/additions: Ativan 2 mg po/IM for severe agitation. -Continue 1:1 sitter for safety -Cannot leave AMA at this time. Patient will need a petition and certification if attempting to leave AMA. -telecommunications linesworker to provide patient with outpatient mental health/psychiatry resources for appropriate follow up upon discharge. -Technology Recruiter spoke with patient about substance abuse and the harmful effects on medical and mental health, patient verbally understood and agreed. -Communicated plan to patient's nurse -Will continue to follow along -Please contact with any questions. 09/14/22 12:13 09/14/22 18:21 09/15/22 16:18 09/15/22 17:03
== END 2022-09-15 16:34 | disposition home or self-care (01) | DRG 917 ==
LOC: EC 17:06 → 3SCARD 21:05 → 2SICU 22:59 → 5NMEDONC 09-14 16:25
PROVIDERS: ADMIT Internal Medicine; ATTEND Internal Medicine
DX: T43.621A Poisoning by amphetamines, accidental (unintentional), initial encounter (principal); G93.41 Metabolic encephalopathy; N17.9 Acute kidney failure, unspecified; M62.82 Rhabdomyolysis; E11.649 Type 2 diabetes mellitus with hypoglycemia without coma; D64.9 Anemia, unspecified; E83.51 Hypocalcemia; F12.10 Cannabis abuse, uncomplicated; F15.90 Other stimulant use, unspecified, uncomplicated; Z59.00 Homelessness unspecified; Z78.1 Physical restraint status
CPT/HCPCS: 36415; 36600; 71045; 80048; 80306; 82330; 82550; 82805; 83735; 84100; 85025; 96361; 96372; 96374; 96375; 99285

== ENCOUNTER 2022-10-07 13:02 | Emergency (ER) | payer OTHER ==
[2022-10-07 13:29] VITALS: RESP 18; TEMP 98.4
[2022-10-07] MEDS ORDERED: SODIUM CHLORIDE 0.9% 1,000 ML IV STA (13:52)
--- NOTE | 2022-10-07 13:52 | ED ---
General Adult HPI - General Source: EMS Mode of arrival: EMS Limitations: altered mental status <Maddy Garcia - Last Filed: 10/07/22 16:51> <Owen Truong - Last Filed: 10/07/22 17:49> - General Chief complaint: Overdose Stated complaint: Overdose - History of Present Illness Initial comments: 32-year-old male with past history of polysubstance abuse presents the emergency department after he had an episode of altered mental status. Patient states that he took 2 mg of Xanax and this is the last he remembers. Friends witnessed him go unresponsive. They did provide him with Narcan and then called EMS. EMS did give him 2 additional milligrams of Narcan and the patient awoke. He denies using any opiates. Does admit to meth and heroin use however has not used heroin in several days. Patient states he still feels extremely sleepy. He arrives covered in feces. No other alleviating, Perceptin or modifying factors (Maddy Garcia) - Related Data Home Medications Medication Instructions Recorded Confirmed No Known Home Medications 09/23/14 10/07/22 Allergies Allergy/AdvReac Type Severity Reaction Status Date / Time adhesive tape Allergy Rash/Hives Verified 10/07/22 14:45 Review of Systems ROS Other: All systems not noted in ROS Statement are negative. <Maddy Garcia - Last Filed: 10/07/22 16:51> ROS Other: All systems not noted in ROS Statement are negative. <Owen Truong - Last Filed: 10/07/22 17:49> ROS Statement: Those systems with pertinent positive or pertinent negative responses have been documented in the HPI. Past Medical History Past Medical History: No Reported History, Unable to Obtain History of Any Multi-Drug Resistant Organisms: None Reported, Unobtainable Past Surgical History: No Surgical Hx Reported, Unable to Obtain Past Anesthesia/Blood Transfusion Reactions: No Reported Reaction Past Psychological History: No Psychological Hx Reported, Unable to Obtain Smoking Status: Unknown if ever smoked Past Alcohol Use History: Occasional Past Drug Use History: Heroin - Past Family History Mother Family Medical History: Unable to Obtain (due to mental status) <Maddy Garcia - Last Filed: 10/07/22 16:51> General Exam Limitations: altered mental status <Maddy Garcia - Last Filed: 10/07/22 16:51> General appearance: alert, in no apparent distress Head exam: Present: atraumatic, normocephalic, normal inspection Eye exam: Present: normal appearance, PERRL, EOMI. Absent: scleral icterus, conjunctival injection, periorbital swelling ENT exam: Present: normal exam, mucous membranes moist Neck exam: Present: normal inspection. Absent: tenderness, meningismus, lymphadenopathy Respiratory exam: Present: normal lung sounds bilaterally. Absent: respiratory distress, wheezes, rales, rhonchi, stridor Cardiovascular Exam: Present: regular rate, normal rhythm, normal heart sounds. Absent: systolic murmur, diastolic murmur, rubs, gallop, clicks GI/Abdominal exam: Present: soft, normal bowel sounds. Absent: distended, tenderness, guarding, rebound, rigid Extremities exam: Present: normal inspection, full ROM, normal capillary refill. Absent: tenderness, pedal edema, joint swelling, calf tenderness Back exam: Present: normal inspection Neurological exam: Present: alert, oriented X3, CN II-XII intact Psychiatric exam: Present: normal affect, normal mood Skin exam: Present: warm, dry, intact, normal color. Absent: rash <Owen Truong - Last Filed: 10/07/22 17:49> Course <Owen Truong - Last Filed: 10/07/22 17:49> Vital Signs 10/07/22 10/07/22 13:05 14:22 Temperature 98.4 F Pulse Rate 108 H 83 Respiratory 18 18 Rate Blood Pressure 150/102 149/82 O2 Sat by Pulse 99 95 Oximetry - Reevaluation(s) Reevaluation #1: 10/07/22 17:47 Medical record is reviewed (Owen Truong) Reevaluation #2: 10/07/22 17:47 Patient was made medically clear for psychiatric evaluation remains not homicidal or suicidal (Owen Truong) Reevaluation #3: 10/07/22 17:48 patient was given a follow-up as an outpatient for support and support groups, he is happy with this information (Owen Truong) EKG Findings - EKG Comments: EKG Findings:: EKG demonstrates sinus tachycardia with a rate of 100. CT interval 145. QRS 86. QTC of 415. No acute ST segment elevations or depressions <Maddy Garcia Anjali - Last Filed: 10/07/22 16:51> Medical Decision Making - Lab Data Result diagrams: 10/07/22 14:08 10/07/22 14:08 <Maddy Garcia - Last Filed: 10/07/22 16:51> - Lab Data Result diagrams: 10/07/22 14:08 10/07/22 14:08 <Owen Truong - Last Filed: 10/07/22 17:49> - Medical Decision Making Upon arrival patient was placed into room 15. Thorough history and physical exam is performed. Patient agreeable to workup. Awaiting urine at this time. 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 Patient will be signed out to Dr. Truong (Maddy Garcia) 32 male to the emergency department for evaluation he was seen and evaluated by psychiatry here in the ER, patient does feel comfortable with discharge diabetic can be discharged home (Owen Truong) - Lab Data Lab Results 10/07/22 10/07/22 10/07/22 Range/Units 14:08 14:08 14:08 WBC 12.5 H (3.8-10.6) k/uL RBC 5.40 (4.30-5.90) m/uL Hgb 16.6 D (13.0-17.5) gm/dL Hct 49.0 (39.0-53.0) % MCV 90.9 (80.0-100.0) fL MCH 30.8 (25.0-35.0) pg MCHC 33.9 (31.0-37.0) g/dL RDW 13.1 (11.5-15.5) % Plt Count 325 D (150-450) k/uL MPV 9.4 Neutrophils % 79 % Lymphocytes % 13 % Monocytes % 6 % Eosinophils % 1 % Basophils % 0 % Neutrophils # 9.9 H (1.3-7.7) k/uL Lymphocytes # 1.6 (1.0-4.8) k/uL Monocytes # 0.7 (0-1.0) k/uL Eosinophils # 0.1 (0-0.7) k/uL Basophils # 0.0 (0-0.2) k/uL PT 10.9 (9.0-12.0) sec INR 1.0 (<1.2) Sodium (137-145) mmol/L Potassium (3.5-5.1) mmol/L Chloride (98-107) mmol/L Carbon Dioxide (22-30) mmol/L Anion Gap mmol/L BUN (9-20) mg/dL Creatinine (0.66-1.25) mg/dL Est GFR (CKD-EPI)AfAm (>60 ml/min/1.73 sqM) Est GFR (CKD-EPI)NonAf (>60 ml/min/1.73 sqM) Glucose (74-99) mg/dL Plasma Lactic Acid Compa (0.7-2.0) mmol/L Calcium (8.4-10.2) mg/dL Total Bilirubin (0.2-1.3) mg/dL AST (17-59) U/L ALT (4-49) U/L Alkaline Phosphatase (38-126) U/L Creatine Kinase (55-170) U/L Troponin I (0.000-0.034) ng/mL Total Protein (6.3-8.2) g/dL Albumin (3.5-5.0) g/dL Urine Color Yellow Urine Appearance Cloudy (Clear) Urine pH 5.5 (5.0-8.0) Ur Specific Morley 1.029 (1.001-1.035) Urine Protein 1+ H (Negative) Urine Glucose (UA) Negative (Negative) Urine Ketones Negative (Negative) Urine Blood Negative (Negative) Urine Nitrite Negative (Negative) Urine Bilirubin Negative (Negative) Urine Urobilinogen <2.0 (<2.0) mg/dL Ur Leukocyte Esterase Negative (Negative) Urine RBC 8 H (0-5) /hpf Urine WBC 5 (0-5) /hpf Ur Squamous Epith Cells <1 (0-4) /hpf Urine Bacteria Rare H (None) /hpf Hyaline Casts 49 H (0-2) /lpf Urine Mucus Many H (None) /hpf Salicylates mg/dL Acetaminophen ug/mL Serum Alcohol mg/dL 10/07/22 10/07/22 10/07/22 Range/Units 14:08 14:08 14:08 WBC (3.8-10.6) k/uL RBC (4.30-5.90) m/uL Hgb (13.0-17.5) gm/dL Hct (39.0-53.0) % MCV (80.0-100.0) fL MCH (25.0-35.0) pg MCHC (31.0-37.0) g/dL RDW (11.5-15.5) % Plt Count (150-450) k/uL MPV Neutrophils % % Lymphocytes % % Monocytes % % Eosinophils % % Basophils % % Neutrophils # (1.3-7.7) k/uL Lymphocytes # (1.0-4.8) k/uL Monocytes # (0-1.0) k/uL Eosinophils # (0-0.7) k/uL Basophils # (0-0.2) k/uL PT (9.0-12.0) sec INR (<1.2) Sodium 143 (137-145) mmol/L Potassium 4.4 (3.5-5.1) mmol/L Chloride 100 (98-107) mmol/L Carbon Dioxide 30 (22-30) mmol/L Anion Gap 13 mmol/L BUN 19 (9-20) mg/dL Creatinine 1.24 (0.66-1.25) mg/dL Est GFR (CKD-EPI)AfAm 88 (>60 ml/min/1.73 sqM) Est GFR (CKD-EPI)NonAf 76 (>60 ml/min/1.73 sqM) Glucose 100 H (74-99) mg/dL Plasma Lactic Acid Compa 1.3 (0.7-2.0) mmol/L Calcium 9.9 (8.4-10.2) mg/dL Total Bilirubin 1.2 (0.2-1.3) mg/dL AST 44 (17-59) U/L ALT 34 (4-49) U/L Alkaline Phosphatase 72 (38-126) U/L Creatine Kinase 214 H (55-170) U/L Troponin I <0.012 (0.000-0.034) ng/mL Total Protein 9.3 H (6.3-8.2) g/dL Albumin 5.4 H (3.5-5.0) g/dL Urine Color Urine Appearance (Clear) Urine pH (5.0-8.0) Ur Specific Morley (1.001-1.035) Urine Protein (Negative) Urine Glucose (UA) (Negative) Urine Ketones (Negative) Urine Blood (Negative) Urine Nitrite (Negative) Urine Bilirubin (Negative) Urine Urobilinogen (<2.0) mg/dL Ur Leukocyte Esterase (Negative) Urine RBC (0-5) /hpf Urine WBC (0-5) /hpf Ur Squamous Epith Cells (0-4) /hpf Urine Bacteria (None) /hpf Hyaline Casts (0-2) /lpf Urine Mucus (None) /hpf Salicylates <1.0 mg/dL Acetaminophen <10.0 ug/mL Serum Alcohol <10 mg/dL Disposition <Maddy Garcia A - Last Filed: 10/07/22 16:51> Is patient prescribed a controlled substance at d/c from ED?: No <Owen Truong - Last Filed: 10/07/22 17:49> Clinical Impression: Drug overdose Disposition: HOME SELF-CARE Condition: Fair Instructions (If sedation given, give patient instructions): Adult Overdose (ED) Referrals: None,Stated [Primary Care Provider] - 1-2 days
[2022-10-07 14:24] VITALS: BP 149/82; PULSE 83
[2022-10-07 14:37] LABS: Basophils % (A) 0 %; Eosinophils # (A) 0.1 k/uL (0-0.7); Eosinophils % (A) 1 %; Lymphocytes # (A) 1.6 k/uL (1.0-4.8); Lymphocytes % (A) 13 %; MCH 30.8 pg (25.0-35.0); MCHC 33.9 g/dL (31.0-37.0); MCV 90.9 fL (80.0-100.0); Mean Platelet Volume 9.4; Monocytes # (A) 0.7 k/uL (0-1.0); Monocytes % (A) 6 %; Neutrophils # (A) 9.9 k/uL (1.3-7.7); Neutrophils % (A) 79 %; RDW 13.1 % (11.5-15.5); WBC 12.5 k/uL (3.8-10.6)
[2022-10-07 14:42] LABS: HGB 16.6 gm/dL (13.0-17.5); Platelet Count 325 k/uL (150-450)
[2022-10-07 14:45] LABS: Prothrombin Time 10.9 sec (9.0-12.0)
[2022-10-07 14:59] LABS: ALT 34 U/L (4-49); AST 44 U/L (17-59); Acetaminophen <10.0 ug/mL; African American GFR (CKD) 88 (>60 ml/min/1.73 sqM); Albumin 5.4 g/dL (3.5-5.0); Alcohol <10 mg/dL; Alkaline Phosphatase 72 U/L (38-126); Anion Gap 13 mmol/L; Blood Urea Nitrogen 19 mg/dL (9-20); Calcium 9.9 mg/dL (8.4-10.2); Carbon Dioxide 30 mmol/L (22-30); Chloride 100 mmol/L (98-107); Creatine Kinase 214 U/L (55-170); Glucose 100 mg/dL (74-99); Non-African American GFR(CKD) 76 (>60 ml/min/1.73 sqM); Potassium 4.4 mmol/L (3.5-5.1); Salicylate <1.0 mg/dL; Sodium 143 mmol/L (137-145); Total Bilirubin 1.2 mg/dL (0.2-1.3); Total Protein 9.3 g/dL (6.3-8.2)
[2022-10-07 17:36] LABS: Appearance,Urine Cloudy (Clear); Bacteria,Urine Rare /hpf; Bilirubin,Urine Negative (Negative); Blood,Urine Negative (Negative); Color,Urine Yellow; Glucose,Urine (UA) Negative (Negative); Hyaline Casts,Urine 49 /lpf (0-2); Ketones,Urine Negative (Negative); Leukocyte Esterase,Urine Negative (Negative); Mucus,Urine Many /hpf; Nitrite,Urine Negative (Negative); PH, Urine 5.5 (5.0-8.0); Protein,Urine 1+ (Negative); RBC,Urine 8 /hpf (0-5); Specific Gravity,Urine 1.029 (1.001-1.035); Squamous Epithelial Cell,Urine <1 /hpf (0-4); Urobilinogen,Urine <2.0 mg/dL (<2.0); WBC,Urine 5 /hpf (0-5)
[2022-10-07 18:05] LABS: Amphetamine Screen,Urine Detected (NotDetected); Barbiturate Screen,Urine Not Detected (NotDetected); Benzodiazepines Screen,Urine Detected (NotDetected); Cocaine Screen,Urine Detected (NotDetected); Methadone Screen, Urine Not Detected (NotDetected); Opiate Screen,Urine Detected (NotDetected); Oxycodone Screen, Urine Not Detected (NotDetected); Phencyclidine Screen,Urine Not Detected (NotDetected); Tricyclic Antidepressant,Urine Not Detected (NotDetected); Urn Cannabinoid Scrn Detected (NotDetected)
== END 2022-10-07 17:52 | disposition home or self-care (01) ==
LOC: EC 13:02
DX: T42.4X1A Poisoning by benzodiazepines, accidental (unintentional), initial encounter (principal); Z88.8 Allergy status to other drugs, medicaments and biological substances
CPT/HCPCS: 36415; 93005; 80053; 82550; 83605; 84484; 85025; 85610; 81001; 80306; 80143; 80179; 99285; 96360; G0480; 80320